=== PATIENT | male | born 1975 ===

== ENCOUNTER 2020-10-05 08:28 | Outpatient (REF) | payer OTHER, SELFPAY ==
[2020-10-05 09:44] LABS: Alanine Aminotransferase 18 U/L (0-40); Albumin Level 4.2 g/dL (3.5-5.0); Alkaline Phosphatase 92 U/L (39-117); Anion Gap 11 (12-20); Aspartate Amino Transferase 18 U/L (5-37); Bilirubin Total 0.4 mg/dL (0.0-1.0); Blood Urea Nitrogen 11 mg/dL (9-16); Calcium 9.4 mg/dL (8.4-10.2); Carbon Dioxide 30 mmol/L (22-29); Chloride 105 mmol/L (96-108); Cholesterol 236 mg/dL; Estimated Glomerular Filt Rate > 60; Glucose Fasting 91 mg/dL (60-99); HDL Cholesterol 48 mg/dL; LDL Cholesterol Calculated 157 mg/dl; Potassium 4.6 mmol/L (3.3-5.1); Sodium 141 mmol/L (135-145); Triglycerides 155 mg/dL
== END 2020-10-05 08:29 | disposition home or self-care (01) ==
LOC: HO.LAB 08:28
PROVIDERS: PCP Internal Medicine; Visit Provider Internal Medicine
DX: E78.00 Pure hypercholesterolemia, unspecified (principal); E78.5 Hyperlipidemia, unspecified
CPT/HCPCS: 36415; 80053; 80061

== ENCOUNTER 2021-02-22 08:21 | Outpatient (REF) | payer OTHER, SELFPAY ==
[2021-02-22 09:26] LABS: Alanine Aminotransferase 40 U/L (0-40); Alkaline Phosphatase 83 U/L (39-117); Anion Gap 10 (12-20); Aspartate Amino Transferase 23 U/L (5-37); Bilirubin Total 0.6 mg/dL (0.0-1.0); Blood Urea Nitrogen 9 mg/dL (9-16); Carbon Dioxide 26 mmol/L (22-29); Chloride 108 mmol/L (96-108); Cholesterol 177 mg/dL; Estimated Glomerular Filt Rate > 60; Glucose Fasting 84 mg/dL (60-99); HDL Cholesterol 52 mg/dL; LDL Cholesterol Calculated 92 mg/dl; Potassium 4.1 mmol/L (3.3-5.1); Sodium 140 mmol/L (135-145); Total Protein 6.7 g/dL (6.5-8.0); Triglycerides 168 mg/dL
== END 2021-02-22 08:22 | disposition home or self-care (01) ==
LOC: HO.LAB 08:21
PROVIDERS: PCP Internal Medicine; Visit Provider Internal Medicine
DX: E78.00 Pure hypercholesterolemia, unspecified (principal); E78.5 Hyperlipidemia, unspecified
CPT/HCPCS: 36415; 80053; 80061

== ENCOUNTER → 2021-04-01 15:43 | Outpatient (BNVA) | payer OTHER, SELFPAY | PROVIDERS: PCP Internal Medicine; Visit Provider Internal Medicine Pulmonary Disease | DX: J45.909 Unspecified asthma, uncomplicated (principal); R91.8 Other nonspecific abnormal finding of lung field; Z91.09 Other allergy status, other than to drugs and biological substances | CPT/HCPCS: 99202 ==

== ENCOUNTER 2021-04-10 15:49 | Outpatient (REF) | payer OTHER, SELFPAY ==
--- NOTE | 2021-04-10 17:35 | PFT_ITS ---
INDICATION: Asthma. SPIROMETRY: The FEV1 to FVC of 65% with an FEV1 of 2.38 L, which is 56% predicted, and an FVC of 3.64 L, which is 69% predicted. Post bronchodilators, there was a significant improvement of the FEV1 by 14%. The patient also has significant small airways disease. Maximum voluntary ventilation 76% predicted. LUNG VOLUMES: Total lung capacity 76% predicted with an expiratory reserve volume of 50% predicted. DIFFUSION CAPACITY: DLCO of 62% predicted. COMPARISONS: None available. INTERPRETATION: There is an obstructive ventilatory defect consistent with moderate to severe COPD. In addition to that, the patient has significant small airways disease suggestive of uncontrolled asthma. There is a significant response to bronchodilators noted. Mild decrease in maximum voluntary ventilation secondary to deconditioning. Lung volumes also demonstrate a mild restrictive ventilatory defect. Therefore, interstitial lung conditions cannot be ruled out. The patient also has moderate diffusion impairment. Clinical correlation warranted. MD JOSE Hernandez/MODL / [id number]
== END 2021-04-10 15:50 | disposition home or self-care (01) ==
LOC: HO.RESP 15:49
PROVIDERS: PCP Internal Medicine; Visit Provider Internal Medicine Pulmonary Disease
DX: J45.909 Unspecified asthma, uncomplicated (principal)
CPT/HCPCS: 94060; 94727; 94729

== ENCOUNTER → 2021-04-22 15:37 | Outpatient (BNVA) | payer OTHER, SELFPAY | PROVIDERS: PCP Internal Medicine; Visit Provider Internal Medicine Pulmonary Disease | DX: Z91.09 Other allergy status, other than to drugs and biological substances (principal); J44.9 Chronic obstructive pulmonary disease, unspecified; J84.10 Pulmonary fibrosis, unspecified | CPT/HCPCS: 99212 ==

== ENCOUNTER 2021-04-26 08:23 | Outpatient (REF) | payer OTHER, SELFPAY ==
[2021-04-26 09:52] LABS: Alanine Aminotransferase 38 U/L (0-40); Albumin Level 4.1 g/dL (3.5-5.0); Alkaline Phosphatase 90 U/L (39-117); Anion Gap 14 (12-20); Aspartate Amino Transferase 25 U/L (5-37); Bilirubin Total 0.5 mg/dL (0.0-1.0); Blood Urea Nitrogen 13 mg/dL (9-16); Calcium 9.3 mg/dL (8.4-10.2); Carbon Dioxide 29 mmol/L (22-29); Chloride 105 mmol/L (96-108); Cholesterol 182 mg/dL; Estimated Glomerular Filt Rate > 60; Glucose Fasting 87 mg/dL (60-99); HDL Cholesterol 49 mg/dL; LDL Cholesterol Calculated 97 mg/dl; Potassium 4.5 mmol/L (3.3-5.1); Sodium 143 mmol/L (135-145); Total Protein 6.9 g/dL (6.5-8.0); Triglycerides 181 mg/dL
== END 2021-04-26 08:24 | disposition home or self-care (01) ==
LOC: HO.LAB 08:23
PROVIDERS: Absent Provider Internal Medicine Pulmonary Disease; PCP Internal Medicine; Visit Provider Internal Medicine
DX: E78.00 Pure hypercholesterolemia, unspecified (principal); E78.5 Hyperlipidemia, unspecified
CPT/HCPCS: 36415; 80053; 80061

== ENCOUNTER 2021-04-28 16:00 | Outpatient (REF) | payer OTHER, SELFPAY ==
[2021-04-28 16:19] LABS: MANUAL DIFF FLAG NO
[2021-04-28 16:39] LABS: Basophils Percent Auto 0.5 % (0-2); Eosinophils Absolute Auto 0.2 X10*3/uL (0.0-0.4); Eosinophils Percent Auto 2.8 % (0-4); Hematocrit 42.9 % (42.0-52.0); Hemoglobin 14.2 g/dl (14.0-18.0); Imm Gran Abs Auto 0.01 X10*3/uL (0.00-0.03); Imm Gran Pct Auto 0.2 % (0.0-0.4); Lymphocytes Percent Auto 32.3 % (20-40); Mean Corpuscular HGB Conc 33.1 g/dl (31.0-36.0); Mean Corpuscular Hemoglobin 28.9 pg (27.0-33.0); Mean Corpuscular Volume 87.4 fL (80.0-98.0); Mean Platelet Volume 10.6 fL (9.4-12.4); Monocytes Absolute Auto 0.5 X10*3/uL (0.1-1.2); Monocytes Percent Auto 8.9 % (2-11); Neutrophils Absolute Auto 3.4 x10*3/uL (2.0-8.3); Neutrophils Percent Auto 55.3 % (45-73); Platelet Count 243 X10*3/uL (160-400); Red Blood Count 4.91 X10*6/uL (4.60-5.80); White Blood Count 6.1 X10*3/uL (4.8-10.8)
== END 2021-04-28 16:01 | disposition home or self-care (01) ==
LOC: HO.LAB 16:00
PROVIDERS: PCP Internal Medicine; Visit Provider Internal Medicine Pulmonary Disease
DX: Z91.09 Other allergy status, other than to drugs and biological substances (principal)
CPT/HCPCS: 36415; 85025

== ENCOUNTER 2022-02-28 08:39 | Outpatient (REF) | payer OTHER, SELFPAY ==
[2022-02-28 10:44] LABS: Alanine Aminotransferase 45 U/L (0-40); Albumin Level 4.5 g/dL (3.5-5.0); Alkaline Phosphatase 95 U/L (39-117); Anion Gap 18 (12-20); Aspartate Amino Transferase 32 U/L (5-37); Bilirubin Total 0.7 mg/dL (0.0-1.0); Blood Urea Nitrogen 12 mg/dL (9-16); Calcium 9.4 mg/dL (8.4-10.2); Carbon Dioxide 24 mmol/L (22-29); Chloride 104 mmol/L (96-108); Cholesterol 191 mg/dL; Estimated Glomerular Filt Rate > 60; Glucose Fasting 88 mg/dL (60-99); HDL Cholesterol 51 mg/dL; LDL Cholesterol Calculated 110 mg/dl; Potassium 4.7 mmol/L (3.3-5.1); Sodium 141 mmol/L (135-145); Total Protein 7.4 g/dL (6.5-8.0); Triglycerides 152 mg/dL
== END 2022-02-28 08:40 | disposition home or self-care (01) ==
LOC: HO.LAB 08:39
PROVIDERS: PCP Internal Medicine; Visit Provider Internal Medicine
DX: E78.00 Pure hypercholesterolemia, unspecified (principal); J84.10 Pulmonary fibrosis, unspecified; E78.5 Hyperlipidemia, unspecified
CPT/HCPCS: 36415; 80053; 80061

== ENCOUNTER 2022-08-22 07:59 | Outpatient (REF) | payer OTHER, SELFPAY ==
--- NOTE | ~2022-08-22 | XR_ITS ---
EXAMINATION: XR KNEE, LEFT CLINICAL INFORMATION: Pain. COMPARISON: None available. TECHNIQUE: AP and lateral views of the left knee. FINDINGS: Bones and soft tissues are normal. No fracture or joint effusion. Alignment is anatomic. Joint spaces are well maintained. No abnormal soft tissue calcification. XR/XR knee LT 2V IMPRESSION: Normal left knee.
[2022-08-22 08:46] LABS: Alanine Aminotransferase 29 U/L (0-40); Albumin Level 4.1 g/dL (3.5-5.0); Alkaline Phosphatase 92 U/L (39-117); Anion Gap 13 (12-20); Aspartate Amino Transferase 21 U/L (5-37); Bilirubin Total 0.7 mg/dL (0.0-1.0); Blood Urea Nitrogen 14 mg/dL (9-16); Calcium 9.1 mg/dL (8.4-10.2); Carbon Dioxide 28 mmol/L (22-29); Chloride 107 mmol/L (96-108); Cholesterol 182 mg/dL; Estimated Glomerular Filt Rate > 60; Glucose Fasting 88 mg/dL (60-99); HDL Cholesterol 46 mg/dL; LDL Cholesterol Calculated 110 mg/dl; Potassium 4.2 mmol/L (3.3-5.1); Sodium 144 mmol/L (135-145); Total Protein 6.8 g/dL (6.5-8.0); Triglycerides 134 mg/dL
== END 2022-08-22 08:00 | disposition home or self-care (01) ==
LOC: HO.LAB 07:59
PROVIDERS: PCP Internal Medicine; Visit Provider Internal Medicine
DX: Z00.00 Encounter for general adult medical examination without abnormal findings (principal); E78.5 Hyperlipidemia, unspecified; M25.562 Pain in left knee
CPT/HCPCS: 36415; 73560; 80053; 80061

== ENCOUNTER 2023-02-02 15:40 | Outpatient (AMB) | payer OTHER, SELFPAY ==
--- NOTE | 2023-02-02 15:43 | MHC.OFFVIS ---
Intake Vital Signs 02/02/23 15:54 Height 5 ft 11 in Weight 176 lb 5.917 oz BMI 24.6 Intake Visit Reasons: asthma Allergies No Known Allergies Allergy (Verified 02/02/23 15:54) HPI asthma HPI Details 47-year-old gentleman, former 20 pack-year smoker, quit 2015, with underlying history of emphysema previously seen at [facility], now followed for asthma/COPD overlap syndrome and ?ILD. Patient was lost to follow up for about 2 years and now returns to restablish follow up. Patient complains of intermittent dyspnea on exertion. He has not been using Stiolto, however his been relying on Combivent. [facility] Medical History Emphysema lung Pure hypercholesterolemia Surgical History No pertinent past surgical history Family History Father No problems noted. Mother No problems noted. Social History Housing: House Alcohol intake: current Alcohol intake frequency: holidays/special occasions only Alcohol type: beer and wine Patient Tobacco Use Status: Former Tobacco user Tobacco use type: Cigarette Years Smoked: 20 years e-Cigarette/Vaping Use: Never Used Second Hand Smoke Exposure: No service: No Current occupational status: employed Current occupational exposures/hazards: No Cognitive needs: No Hearing needs: No Vision needs: No Review of Systems Const Denies daytime sleepiness, Denies excessive sweating, Denies fatigue, Denies fever(s), Denies lethargy, Denies malaise, Denies night sweats, Denies snoring and Denies weight loss Eyes Denies blurry vision and Denies itchy eyes ENT Denies nasal congestion, Denies post nasal drip, Denies sinus pain, Denies sinus pressure and Denies other ( Thrush) Card Denies chest pain, Denies pedal edema, Denies dyspnea, Reports dyspnea on exertion, Denies orthopnea and Denies paroxysmal nocturnal dyspnea Resp Denies cough, Denies hemoptysis, Denies excessive phlegm production, Denies dyspnea, Reports dyspnea on exertion, Denies snoring and Denies wheezing GI Denies abdominal pain and Denies heartburn Musc Denies myalgias, Denies arthralgias and Denies joint swelling Skin/Breast Denies rash Neuro Denies memory loss and Denies seizure-like activity Psych Denies abnormal sleep pattern, Denies anxiety and Denies memory loss Endo Denies excessive sweating, Denies fatigue and Denies heat intolerance Maikol/Lymph Denies easy bruising Aller/Immun Denies itchy eyes, Denies seasonal rhinorrhea and Denies wheezing Physical Exam Const General: no acute distress and alert Nutritional Appearance: not obese Orientation/consciousness: Other orientation findings ( oriented) HEENT Head: Yes atraumatic Eyes General: appearance normal, both eyes and all related structures Sclerae: sclerae normal EOM: EOMs intact bilaterally Neck Neck: Yes supple Lymphatic: no lymphadenopathy noted Resp Effort & Inspection: normal respiratory effort and no use of accessory muscles Auscultation: clear to auscultation bilaterally Cardio Rate: regular rate Rhythm: regular rhythm Heart sounds: no gallops, no murmurs and no rubs Skin General skin exam: other ( warm) Extrem General: No clubbing, No cyanosis and No edema Assessment & Plan Assessment & Plan (1) Pulmonary fibrosis: Code(s): J84.10 - Pulmonary fibrosis, unspecified Plan: Will obtain pulmonary function test and CT chest for further evaluation. (2) Asthma-COPD overlap syndrome: Code(s): J44.9 - Chronic obstructive pulmonary disease, unspecified Plan: Will continue on Combivent until PFT results are available. Orders: Orders CT chest wo IV con Today J84.10 - Pulmonary fibrosis, unspecified PFT pulmonary function test Today J84.10 - Pulmonary fibrosis, unspecified Coding Level of Care Code Est Pt Level 4 (22625) Diagnoses Pulmonary fibrosis J84.10 Asthma-COPD overlap syndrome J44.9
[2023-02-02 15:54] VITALS: BMI 24.6
== END 2023-02-02 15:52 | disposition home or self-care (01) ==
PROVIDERS: PCP Internal Medicine; Visit Provider Internal Medicine Pulmonary Disease
DX: J84.10 Pulmonary fibrosis, unspecified (principal); J44.9 Chronic obstructive pulmonary disease, unspecified
CPT/HCPCS: 99214

== ENCOUNTER → 2023-02-02 15:40 | Outpatient (BNVA) | payer OTHER, SELFPAY | PROVIDERS: PCP Internal Medicine; Visit Provider Internal Medicine Pulmonary Disease | DX: J44.9 Chronic obstructive pulmonary disease, unspecified (principal); J84.10 Pulmonary fibrosis, unspecified | CPT/HCPCS: 99212 ==

== ENCOUNTER 2023-02-22 15:23 | Outpatient (REF) | payer OTHER, SELFPAY ==
--- NOTE | 2023-02-22 16:11 | PFT_ITS ---
Forced vital capacity is 67%, FEV1 49%, FEV1 over FVC ratio is 59. [id number] is 21% and MVV 66%. Post bronchodilator therapy, there is significant improvement in FEV1 and [id number]. CONCLUSION: Severe obstructive airway disorder. There is partial reversibility after bronchodilator therapy. These findings are consistent with asthma/COPD overlap syndrome. Clinical correlation is recommended. MD SEGUN Romero/MODL / [id number]
== END 2023-02-22 15:24 | disposition home or self-care (01) ==
LOC: HO.RESP 15:23
PROVIDERS: PCP Internal Medicine; Visit Provider Internal Medicine Pulmonary Disease
DX: J84.10 Pulmonary fibrosis, unspecified (principal)
CPT/HCPCS: 94010; 94727; 94729

== ENCOUNTER → 2023-02-22 16:11 | Outpatient (BNV) | payer OTHER, SELFPAY | PROVIDERS: PCP Internal Medicine; Visit Provider Internal Medicine | DX: J84.10 Pulmonary fibrosis, unspecified (principal); J44.9 Chronic obstructive pulmonary disease, unspecified | CPT/HCPCS: 94060; 94727; 94729 ==

== ENCOUNTER 2023-03-24 15:58 | Outpatient (REF) | payer OTHER, SELFPAY ==
--- NOTE | ~2023-03-24 | CT_ITS ---
EXAMINATION: CT CHEST WITHOUT CONTRAST CLINICAL INFORMATION: Pulmonary fibrosis COMPARISON: None available. TECHNIQUE: Multidetector volumetric CT imaging of the chest was done. Axial MIP volume rendering provided. Sagittal and coronal reformatted images were obtained. This CT examination was performed using dose optimization techniques as appropriate, variously including the following: *Automated exposure control *Adjustment of mA and/or kV according to patient size (this includes techniques or standardized protocols for targeted exams where dose is matched to indication/reason for exam; i.e. extremities or head) *Use of iterative reconstruction technique DLP: 164 mGy-cm FINDINGS: KENO WRITER/RUNNER: Hyperinflation, right greater than left LUNGS: Mild biapical pleural thickening. Trachea and bronchi are patent with diffuse wall thickening. Lungs are hyper inflated with diffuse advanced emphysematous changes, most pronounced involving the entire right upper lobe, part of the left upper and right lower lobes left. Somewhat elongated, 1.7 x 0.8 x 1.7 cm pleural based right upper lobe opacity spiculated margins is identified, 9:56. 3 mm subpleural VANGIE nodule, 9:85. Scattered granulomas, largest in the left upper lobe measuring 4 mm at 9/71. Biapical pleural thickening. Scattered atelectasis. MEDIASTINUM: Unremarkable thyroid. No pathologic lymphadenopathy. Nonenlarged heart. No pericardial effusion. Degree of coronary calcifications: Mild. Nonaneurysmal aorta with mild atherosclerotic calcifications. Nonenlarged pulmonary arteries. CORONARY ARTERY CALCIFICATION: Mild. PLEURA: There is no pleural effusion. No pleural mass or thickening. 8mm right minor fissural lymph node. AXILLA: No lymphadenopathy. UPPER ABDOMEN: Debris-filled stomach left renal hypodensities, likely cysts. Question left parapelvic cyst versus left intrarenal collecting system prominence. OSSEOUS STRUCTURES: Mild degenerative changes. No suspicious osseous lesions. CT/CT chest wo IV con IMPRESSION: Advanced emphysema. 1.7 cm right upper lobe pleural-based spiculated opacity. Consider CT at 3 months, PET/CT or tissue sampling. Likely left renal cysts. Left parapelvic cyst versus left renal collecting system fullness. Consider ultrasound. Fleischner guidelines were followed.
== END 2023-03-24 15:59 | disposition home or self-care (01) ==
LOC: HO.CT 15:58
PROVIDERS: PCP Internal Medicine; Visit Provider Internal Medicine Pulmonary Disease
DX: J84.10 Pulmonary fibrosis, unspecified (principal)
CPT/HCPCS: 71250

== ENCOUNTER 2023-03-25 15:18 | Outpatient (AMB) | payer OTHER, SELFPAY ==
[2023-03-25 15:20] VITALS: BP 117/77; PULSE 86; O2SAT 99; BMI 24.1
--- NOTE | 2023-03-25 15:20 | MHC.OFFVIS ---
Intake Vital Signs 03/25/23 15:20 Height 5 ft 11 in Weight 173 lb 1.006 oz BMI 24.1 BP 117/77 Blood Pressure Location Rt brachial Position Sitting Pulse 86 Pulse Source Doppler Pulse Oximetry (%) 99 Oxygen Delivery Method Room Air Intake Visit Reasons: asthma Medical Assisting Program Director Required: Yes Medical Assisting Program Director Name: Leonela Bedoya Sabina Allergies No Known Allergies Allergy (Verified 03/25/23 15:24) HPI asthma HPI Details 47-year-old gentleman, former 20 pack-year smoker, quit 2015, with underlying history of emphysema previously seen at [facility], now followed for asthma/COPD overlap syndrome. After the last office visit he has completed his pulmonary function testing that shows underlying moderate COPD with bronchodilator response. He he CT chest has been performed, however official results are not available for this visit. [facility] Medical History (Updated 03/25/23 @ 15:32 by Prabhjot Carrasco MD) Pure hypercholesterolemia Emphysema lung Surgical History No pertinent past surgical history Family History Father No problems noted. Mother No problems noted. Social History (Updated 03/25/23 @ 15:24 by KAYDEN Delacruz) Housing: House Alcohol intake: current Alcohol intake frequency: holidays/special occasions only Alcohol type: beer and wine Patient Tobacco Use Status: Former Tobacco user Tobacco use type: Cigarette Cigarette Packs Per Day: 1 Years Smoked: 20 years e-Cigarette/Vaping Use: Never Used Second Hand Smoke Exposure: No service: No Current occupational status: employed Current occupational exposures/hazards: No Cognitive needs: No Hearing needs: No Vision needs: No Review of Systems Const Denies daytime sleepiness, Denies excessive sweating, Denies fatigue, Denies fever(s), Denies lethargy, Denies malaise, Denies night sweats, Denies snoring and Denies weight loss Eyes Denies blurry vision and Denies itchy eyes ENT Denies nasal congestion, Denies post nasal drip, Denies sinus pain, Denies sinus pressure and Denies other ( Thrush) Card Denies chest pain, Denies pedal edema, Denies dyspnea, Denies orthopnea and Denies paroxysmal nocturnal dyspnea Resp Denies cough, Denies hemoptysis, Denies excessive phlegm production, Denies dyspnea, Denies snoring and Denies wheezing GI Denies abdominal pain and Denies heartburn Musc Denies myalgias, Denies arthralgias and Denies joint swelling Skin/Breast Denies rash Neuro Denies memory loss and Denies seizure-like activity Psych Denies abnormal sleep pattern, Denies anxiety and Denies memory loss Endo Denies excessive sweating, Denies fatigue and Denies heat intolerance Maikol/Lymph Denies easy bruising Aller/Immun Denies itchy eyes, Denies seasonal rhinorrhea and Denies wheezing Physical Exam Vital Signs: Last Vital Signs Pulse 86 03/25/23 15:20 BP 117/77 03/25/23 15:20 Pulse Ox 99 03/25/23 15:20 Oxygen Delivery Method Room Air 03/25/23 15:20 BMI result Body Mass Index 24.1 Const General: no acute distress and alert Nutritional Appearance: not obese Orientation/consciousness: Other orientation findings ( oriented) HEENT Head: Yes atraumatic Eyes General: appearance normal, both eyes and all related structures Sclerae: sclerae normal EOM: EOMs intact bilaterally Neck Neck: Yes supple Lymphatic: no lymphadenopathy noted Resp Effort & Inspection: normal respiratory effort and no use of accessory muscles Auscultation: clear to auscultation bilaterally Cardio Rate: regular rate Rhythm: regular rhythm Heart sounds: no gallops, no murmurs and no rubs Skin General skin exam: other ( warm) Extrem General: No clubbing, No cyanosis and No edema Assessment & Plan Assessment & Plan (1) Asthma-COPD overlap syndrome: Code(s): J44.9 - Chronic obstructive pulmonary disease, unspecified Plan: Suboptimally controlled on Flovent, will switch to Breo. Continue albuterol MDI. (2) Pulmonary nodules: Code(s): R91.8 - Other nonspecific abnormal finding of lung field Plan: Follow-up CT chest results are pending. Medications: New fluticasone furoate-vilanterol 200-25 mcg/dose (Breo Ellipta) 1 inh inhalation DAILY 1 ea 6RF 30 days Discontinued fluticasone propionate 44 mcg/actuation (Flovent HFA) administer with spacer Discontinued Reason: Doctor's Order 1 puff inhalation BID 10.6 grams 1RF 30 days Coding Level of Care Code Est Pt Level 4 (92945) Diagnoses Asthma-COPD overlap syndrome J44.9 Pulmonary nodules R91.8
== END 2023-03-25 15:36 | disposition home or self-care (01) ==
PROVIDERS: PCP Internal Medicine; Visit Provider Internal Medicine Pulmonary Disease
DX: J44.9 Chronic obstructive pulmonary disease, unspecified (principal); R91.8 Other nonspecific abnormal finding of lung field
CPT/HCPCS: 99214

== ENCOUNTER → 2023-03-25 15:18 | Outpatient (BNVA) | payer OTHER, SELFPAY | PROVIDERS: PCP Internal Medicine; Visit Provider Internal Medicine Pulmonary Disease | DX: J44.9 Chronic obstructive pulmonary disease, unspecified (principal); R91.8 Other nonspecific abnormal finding of lung field | CPT/HCPCS: 99212 ==

== ENCOUNTER 2023-09-29 15:29 | Outpatient (AMB) | payer OTHER, SELFPAY ==
[2023-09-29 15:35] VITALS: BP 128/62; PULSE 82; O2SAT 98; BMI 24.8
--- NOTE | 2023-09-29 15:35 | A.OFFVIS_ITS ---
Vital Signs 09/29/23 15:35 Height 5 ft 11 in Weight 178 lb BMI 24.8 BP 128/62 Blood Pressure Location Rt brachial Position Sitting Pulse 82 Pulse Source Doppler Pulse Oximetry (%) 98 Oxygen Delivery Method Room Air Intake Visit Reasons: asthma Coding Validator Required: Yes Coding Validator Name: Leonela Aureliano Muhammad Allergies No Known Allergies Allergy (Verified 09/29/23 15:38) HPI HPI asthma: Details: 48-year-old gentleman, former 20 pack-year smoker, quit 2015, with underlying history of emphysema previously seen at [facility], now followed for asthma/COPD overlap syndrome. After the last office visit he was switched from Flovent to Breo with improved control of his symptoms, however he can no longer tolerate powder inhalers. He denies acute exacerbations. [facility] Medical History (Updated 03/25/23 @ 15:32 by Prabhjot Carrasco MD) Pure hypercholesterolemia Emphysema lung Surgical History No pertinent past surgical history Family History Father No problems noted. Mother No problems noted. Social History Housing: House Alcohol intake: current Alcohol intake frequency: holidays/special occasions only Alcohol type: beer and wine Patient Tobacco Use Status: Former Tobacco user Tobacco use type: Cigarette Cigarette Packs Per Day: 1 Years Smoked: 20 years e-Cigarette/Vaping Use: Never Used Second Hand Smoke Exposure: No service: No Current occupational status: employed Current occupational exposures/hazards: No Cognitive needs: No Hearing needs: No Vision needs: No Review of Systems Const Denies daytime sleepiness, Denies excessive sweating, Denies fatigue, Denies fever(s), Denies lethargy, Denies malaise, Denies night sweats, Denies snoring and Denies weight loss Eyes Denies blurry vision and Denies itchy eyes ENT Denies nasal congestion, Denies post nasal drip, Denies sinus pain, Denies sinus pressure and Denies other ( Thrush) Card Denies chest pain, Denies pedal edema, Denies dyspnea, Denies orthopnea and Denies paroxysmal nocturnal dyspnea Resp Denies cough, Denies hemoptysis, Denies excessive phlegm production, Denies dyspnea, Denies snoring and Denies wheezing GI Denies abdominal pain and Denies heartburn Musc Denies myalgias, Denies arthralgias and Denies joint swelling Skin/Breast Denies rash Neuro Denies memory loss and Denies seizure-like activity Psych Denies abnormal sleep pattern, Denies anxiety and Denies memory loss Endo Denies excessive sweating, Denies fatigue and Denies heat intolerance Maikol/Lymph Denies easy bruising Aller/Immun Denies itchy eyes, Denies seasonal rhinorrhea and Denies wheezing Physical Exam Vital Signs: Last Vital Signs Pulse 82 09/29/23 15:35 BP 128/62 09/29/23 15:35 Pulse Ox 98 09/29/23 15:35 Oxygen Delivery Method Room Air 09/29/23 15:35 BMI result Body Mass Index 24.8 Const General: no acute distress and alert Nutritional Appearance: not obese Orientation/consciousness: Other orientation findings ( oriented) HEENT Head: Yes atraumatic Eyes General: appearance normal, both eyes and all related structures Sclerae: sclerae normal EOM: EOMs intact bilaterally Neck Neck: Yes supple Lymphatic: no lymphadenopathy noted Resp Effort & Inspection: normal respiratory effort and no use of accessory muscles Auscultation: clear to auscultation bilaterally Cardio Rate: regular rate Rhythm: regular rhythm Heart sounds: no gallops, no murmurs and no rubs Skin General skin exam: other ( warm) Extrem General: No clubbing, No cyanosis and No edema Assessment & Plan Assessment & Plan (1) Asthma-COPD overlap syndrome: Code(s): J44.9 - Chronic obstructive pulmonary disease, unspecified Category: Medical Plan: Improved control on Breo, however can not tolerate powder inhaler, will switch to Symbicort. Continue Combivent. (2) Pulmonary nodules: Code(s): R91.8 - Other nonspecific abnormal finding of lung field Category: Medical Plan: Underlying 1.7 cm pulmonary nodule previously negative on PET. Will repeat CT chest for further follow-up. Orders: Orders CT chest wo IV con Today R91.8 - Other nonspecific abnormal finding of lung field Medications: New budesonide-formoterol 160-4.5 mcg/actuation (Symbicort) 2 puffs inhalation BID 30 days 10.2 grams 6RF Discontinued fluticasone furoate-vilanterol 200-25 mcg/dose (Breo Ellipta) Discontinued Reason: Doctor's Order 1 inh inhalation DAILY 30 days 1 ea 6RF Coding Level of Care Code Est Pt Level 4 (07325) Diagnoses Asthma-COPD overlap syndrome J44.9 Pulmonary nodules R91.8
== END 2023-09-29 15:50 | disposition home or self-care (01) ==
PROVIDERS: PCP Internal Medicine; Visit Provider Internal Medicine Pulmonary Disease
DX: J44.9 Chronic obstructive pulmonary disease, unspecified (principal); R91.8 Other nonspecific abnormal finding of lung field
CPT/HCPCS: 99214

== ENCOUNTER → 2023-09-29 15:29 | Outpatient (BNVA) | payer OTHER, SELFPAY | PROVIDERS: PCP Internal Medicine; Visit Provider Internal Medicine Pulmonary Disease | DX: J44.9 Chronic obstructive pulmonary disease, unspecified (principal); R91.8 Other nonspecific abnormal finding of lung field | CPT/HCPCS: 99212 ==

== ENCOUNTER 2023-11-05 14:42 | Outpatient (REF) | payer OTHER, SELFPAY ==
--- NOTE | ~2023-11-05 | CT_ITS ---
EXAMINATION: CT CHEST WITHOUT CONTRAST CLINICAL INFORMATION: Right upper lobe spiculated opacity COMPARISON: 03/24/2023 TECHNIQUE: Multidetector volumetric CT imaging of the chest was done. Axial MIP volume rendering provided. Sagittal and coronal reformatted images were obtained. This CT examination was performed using dose optimization techniques as appropriate, variously including the following: *Automated exposure control *Adjustment of mA and/or kV according to patient size (this includes techniques or standardized protocols for targeted exams where dose is matched to indication/reason for exam; i.e. extremities or head) *Use of iterative reconstruction technique DLP: 163 mGy-cm FINDINGS: VALVE REPAIRER RECLAMATION: Unremarkable LUNGS: There are severe changes of panlobular emphysema in the upper lobes, more prominent on the right upper lobe and there is stable lobulated apical scarring measured 0.5 x 1.2 cm inseparable from the right apical scarring. There is new spiculated lesion measured 1.1 x 0.7 x 0.5 cm in the right upper lobe spiculated with tethering of interpolar fissure, suspicious for malignancy. On the left there is 0.4 cm calcification granuloma in the left upper lobe seen on image 213 series 5 and there is subpleural left upper lobe 0.3 cm nodule seen on image 255, both nodules are stable. MEDIASTINUM: Thyroid gland is unremarkable. There is no mediastinal or hilar lymphadenopathy no cardiomegaly or pericardial effusion. CORONARY ARTERY CALCIFICATION: Mild PLEURA: There is no pleural effusion. No pleural mass or thickening. AXILLA: No lymphadenopathy. UPPER ABDOMEN: Unremarkable. OSSEOUS STRUCTURES: Unremarkable. CT/CT chest wo IV con IMPRESSION: New spiculated lesion in the right upper lobe suspicious for malignancy. PET/CT is recommended. Severe changes of panlobular emphysema, more prominent on the right and stable left lung nodules. Fleischner guidelines were followed.
== END 2023-11-05 14:43 | disposition home or self-care (01) ==
LOC: HO.CT 14:42
PROVIDERS: PCP Internal Medicine; Visit Provider Internal Medicine Pulmonary Disease
DX: R91.8 Other nonspecific abnormal finding of lung field (principal)
CPT/HCPCS: 71250

== ENCOUNTER 2024-01-29 07:39 | Outpatient (REF) | payer OTHER, SELFPAY ==
[2024-01-29 09:31] LABS: Alanine Aminotransferase 31 U/L (0-40); Alkaline Phosphatase 87 U/L (39-117); Anion Gap 11 (12-20); Aspartate Amino Transferase 25 U/L (5-37); Bilirubin Total 0.5 mg/dL (0.0-1.0); Blood Urea Nitrogen 14 mg/dL (9-16); Calcium 9.2 mg/dL (8.4-10.2); Carbon Dioxide 29 mmol/L (22-29); Chloride 106 mmol/L (96-108); Cholesterol 170 mg/dL (<200); Estimated Glomerular Filt Rate > 60; Glucose Fasting 88 mg/dL (60-99); HDL Cholesterol 49 mg/dL (>40); LDL Cholesterol Calculated 102 mg/dL (<100); Potassium 4.3 mmol/L (3.3-5.1); Sodium 142 mmol/L (135-145); Total Protein 6.7 g/dL (6.5-8.0); Triglycerides 97 mg/dL (<150)
== END 2024-01-29 07:40 | disposition home or self-care (01) ==
LOC: HO.LAB 07:39
PROVIDERS: PCP Internal Medicine; Visit Provider Internal Medicine
DX: J84.10 Pulmonary fibrosis, unspecified (principal); E78.5 Hyperlipidemia, unspecified
CPT/HCPCS: 36415; 80053; 80061

== ENCOUNTER 2024-02-03 17:02 | Outpatient (AMB) | payer OTHER, SELFPAY ==
--- NOTE | 2024-02-03 17:17 | MHC.PC.OV ---
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 Accompanied by: Self / Same As Patient Allergies No Known Allergies Allergy (Verified 02/03/24 17:28) Medication List - Last Reconciled 02/03/24 by Kerrie Escobar MD atorvastatin 10 mg PO BEDTIME 90 days budesonide-formoterol 160-4.5 mcg/actuation (Symbicort) 2 puffs inhalation BID 30 days ipratropium-albuterol 20-100 mcg/actuation 1 puff inhalation Q6H 30 days Tobacco use date assessed: 02/03/24 Dental Screening Dental Screen Date: 02/03/24 Did you have a dental visit in the last 12 months?: Yes Did you have a dental problem in the last 6 months where you did not have access to dental care?: No Was dental information given to patient?: Patient has dentist HPI HPI Comments History of Present Illness Details This is a 48-year-old male with asthma-COPD overlap syndrome that comes for his physical exam. Asthma-COPD syndrome is follow by pulmonology and he use rescue inhaler less than once month. Colonoscopy done less than 10 years ago was normal. No acute complaints. [facility] Medical History (Updated 02/04/24 @ 07:46 by Kerrie Escobar MD) Pure hypercholesterolemia Emphysema lung Surgical History (Updated 02/03/24 @ 17:34 by Kerrie Escobar MD) H/O colonoscopy No pertinent past surgical history Family History (Updated 02/03/24 @ 17:35 by Kerrie Escobar MD) Father No problems noted. Mother Breast cancer Social History Housing: House Alcohol intake: current Alcohol intake frequency: holidays/special occasions only Alcohol type: beer and wine Patient Tobacco Use Status: Former Tobacco user Tobacco use type: Cigarette Cigarette Packs Per Day: 1 Years Smoked: 20 years e-Cigarette/Vaping Use: Never Used Second Hand Smoke Exposure: No service: No Current occupational status: employed Current occupational exposures/hazards: No Cognitive needs: No Hearing needs: No Vision needs: No Questionnaire PHQ-9 Over the last 2 weeks, how often have you been bothered by any of the following problems? 1. Little interest or pleasure in doing things: not at all 2. Feeling down, depressed, or hopeless: not at all 3. Trouble falling or staying asleep, or sleeping too much: not at all 4. Feeling tired or having little energy: several days 5. Poor appetite or overeating: not at all 6. Feeling bad about yourself - or that you are a failure or have let yourself or your family down: not at all 7. Trouble concentrating on things, such as reading the newspaper or watching television: not at all 8. Moving or speaking so slowly that other people could have noticed. Or the opposite - being so fidgety or restless that you have been moving around a lot more than usual: not at all 9. Thoughts that you would be better off or of hurting yourself in some way: not at all Total score: 1 Depression Screening Interpretation: Negative Depression Screening Done: Yes 70860 - PHQ-9 Billing: Yes Source: Developed by Drs. Adrián Seth, Yana Cerda, Rosalino Amezcua and colleagues, with an educational gretel from [employer]. Thrive Questionnaire Date Thrive assessed: 02/03/24 I am a: Patient What is your living situation today?: I have a steady place to live Within the past 12 months, did the food you bought not last and you didn't have the money to get more?: Never true Within the past 12 months, did you worry whether your food would run out before you got money to buy more?: Never true Do you have trouble paying for medicines?: No Do you have trouble getting transportation to medical appointments?: No Do you have trouble paying your heating and electricity bill?: No Do you have trouble taking care of your child, family member or friend?: No Do you have trouble with day-to-day activities such as bathing, preparing meals, shopping, managing finances, etc.?: No Are you currently unemployed and looking for a job?: No Are you interested in more education?: No Please select the resources that you would like help with: None Currently or been in a relationship where the following occur: I choose not to answer THRIVE Score: 0 AUDIT C Alcohol Use Questionnaire (AUDIT-C) 1. How often do you have a drink containing alcohol?: Monthly or less 2. How many drinks containing alcohol do you have on a typical day when you are drinking?: 1 or 2 3. How often do you have six or more drinks on one occasion?: Never Total Score: 1 Score Reviewed/Action Taken: No ARY-7 AMB Questionnaire RAY-7 Date ARY - 7 assessed: 02/03/24 Feeling nervous, anxious, or on edge: 0 = Not at all Not being able to stop or control worryin = Not at all Worrying too much about different things: 0 = Not at all Trouble relaxin = Not at all Being so restless that it is hard to sit still: 0 = Not at all Becoming easily annoyed or irritable: 0 = Not at all Feeling afraid as if something awful might happen: 0 = Not at all Total ARY-7 score (0-4 normal; 5-9 mild; 10-14 moderate; 15-21 severe): 0 Source: Developed by Drs. Adrián Seth, Yana Cerda, Rosalino Amezcua and colleagues, with an educational gretel from [employer]. ARY-7 Assessment Billing ARY-7 Assessment Tool: ARY-7 Assessment 65016 Review of Systems Const All systems reviewed & are unremarkable except as noted in HPI and below Card Denies chest pain at rest, Denies chest pain with activity, Denies edema, Denies irregular heart rhythm, Denies claudication, Denies dyspnea, Denies dyspnea on exertion, Denies orthopnea, Denies paroxysmal nocturnal dyspnea and Denies slow heart rate Resp Denies cough, Denies dyspnea and Denies dyspnea on exertion GI Denies abdominal pain, Denies change in bowel habits, Denies excessive flatus, Denies nausea and Denies vomiting Denies urinary hesitancy, Denies urinary incontinence and Denies urinary urgency Musc Denies abnormal gait, Denies atrophy, Denies deformity and Denies limited range of motion Skin/Breast Denies bleeding lesions, Denies changing lesions and Denies rash Neuro Denies abnormal gait and Denies lack of coordination Physical exam (Primary Care) Vital Signs: Last Vital Signs BP 130/80 02/03/24 17:18 BMI result Body Mass Index 25.0 Tobacco/Smoking Status: Tobacco use Status Tobacco use date assessed 02/03/24 02/03/24 17:25 Patient Tobacco Use Status Former Tobacco user 02/03/24 17:25 Tobacco use type Cigarette 02/03/24 17:25 e-Cigarette/Vaping Use Never Used 02/03/24 17:25 PHQ-9: PHQ-9 Score PHQ-9: Total score 1 02/03/24 17:29 Depression Screening Interpretation: Negative Thrive Assessment: Date of Thrive Assessment Date Thrive assessed 02/03/24 02/03/24 17:25 Currently or been in a relationship where the following occur: I choose not to answer HENMT Head: Yes normal to inspection, Yes normocephalic and Yes atraumatic Ears: external ears normal Eyes General: appearance normal, both eyes and all related structures Eyelids: Yes eyelids normal Conjunctivae: conjunctivae normal Neck Neck: Yes normal visual inspection and Yes supple Resp Effort & Inspection: normal respiratory effort Auscultation: clear to auscultation bilaterally Cardio Jugular venous distension: no JVD Rate: regular rate Rhythm: regular rhythm Heart sounds: S1 normal heart sound present and S2 normal heart sound present GI Inspection: Yes normal to inspection Palpation (GI): Soft to palpation and nontender Auscultation: normal bowel sounds Skin General skin exam: no rashes or lesions noted Neuro General: no focal motor deficits Extrem General: Yes full ROM Psych Appearance: grossly normal Assessment and Plan Assessment & Plan (1) Physical exam: Code(s): Z00.00 - Encounter for general adult medical examination without abnormal findings Plan: Repeat in a year. (2) Asthma-COPD overlap syndrome: Code(s): J44.9 - Chronic obstructive pulmonary disease, unspecified Plan: Continue long-acting inhaler. Use rescue inhaler as needed. Coding Level of Care Code Est Pt Prev Care 40-64y(30861) Diagnoses Physical exam Z00.00 Asthma-COPD overlap syndrome J44.9 Additional Codes ARY-7 Assessment Billing - ARY-7 Assessment Tool: ARY-7 Assessment 40316 ([id number]) Time Spent (min) 30
[2024-02-03 17:18] VITALS: BP 130/80; BMI 25.0
== END 2024-02-03 17:36 | disposition home or self-care (01) ==
PROVIDERS: PCP Internal Medicine; Visit Provider Internal Medicine
DX: Z00.00 Encounter for general adult medical examination without abnormal findings (principal); J44.9 Chronic obstructive pulmonary disease, unspecified
CPT/HCPCS: 99396

== ENCOUNTER 2024-04-19 14:49 | Outpatient (AMB) | payer OTHER, SELFPAY ==
[2024-04-19 14:55] VITALS: BP 118/80; PULSE 86; O2SAT 98; BMI 25.4
--- NOTE | 2024-04-19 14:55 | MHC.OFFVIS ---
Vital Signs 04/19/24 14:55 Height 5 ft 11 in Weight 181 lb 14.102 oz BMI 25.4 BP 118/80 Blood Pressure Location Lt brachial Position Sitting Pulse 86 Pulse Source Doppler Pulse Oximetry (%) 98 Oxygen Delivery Method Room Air Intake Visit Reasons: Asthma Varitypist Required: Yes Varitypist Name: Leonela Bedoya Sabina Allergies No Known Allergies Allergy (Verified 02/03/24 17:28) HPI HPI Asthma: Details: 48-year-old gentleman, former 20 pack-year smoker, quit 2016, with underlying history of emphysema previously seen at [facility], now followed for asthma/COPD overlap syndrome. After the last office visit he was switched from Breo to Symbicort with improved symptom control. He did have repeat CT chest that shows new spiculated right upper lobe nodule. [facility] Medical History (Updated 02/04/24 @ 07:46 by Kerrie Escobar MD) Pure hypercholesterolemia Emphysema lung Surgical History (Updated 02/03/24 @ 17:34 by Kerrie Escobar MD) H/O colonoscopy No pertinent past surgical history Family History (Updated 02/03/24 @ 17:35 by Kerrie Escobar MD) Father No problems noted. Mother Breast cancer Social History Housing: House Alcohol intake: current Alcohol intake frequency: holidays/special occasions only Alcohol type: beer and wine Patient Tobacco Use Status: Former Tobacco user Tobacco use type: Cigarette Cigarette Packs Per Day: 1 Years Smoked: 20 years e-Cigarette/Vaping Use: Never Used Second Hand Smoke Exposure: No service: No Current occupational status: employed Current occupational exposures/hazards: No Cognitive needs: No Hearing needs: No Vision needs: No Review of Systems Const Denies daytime sleepiness, Denies excessive sweating, Denies fatigue, Denies fever(s), Denies lethargy, Denies malaise, Denies night sweats, Denies snoring and Denies weight loss Eyes Denies blurry vision and Denies itchy eyes ENT Denies nasal congestion, Denies post nasal drip, Denies sinus pain, Denies sinus pressure and Denies other ( Thrush) Card Denies chest pain, Denies pedal edema, Denies dyspnea, Denies orthopnea and Denies paroxysmal nocturnal dyspnea Resp Denies cough, Denies hemoptysis, Denies excessive phlegm production, Denies dyspnea, Denies snoring and Denies wheezing GI Denies abdominal pain and Denies heartburn Musc Denies myalgias, Denies arthralgias and Denies joint swelling Skin/Breast Denies rash Neuro Denies memory loss and Denies seizure-like activity Psych Denies abnormal sleep pattern, Denies anxiety and Denies memory loss Endo Denies excessive sweating, Denies fatigue and Denies heat intolerance Maikol/Lymph Denies easy bruising Aller/Immun Denies itchy eyes, Denies seasonal rhinorrhea and Denies wheezing Physical Exam Vital Signs: Last Vital Signs Pulse 86 04/19/24 14:55 BP 118/80 04/19/24 14:55 Pulse Ox 98 04/19/24 14:55 Oxygen Delivery Method Room Air 04/19/24 14:55 BMI result Body Mass Index 25.4 Const General: no acute distress and alert Nutritional Appearance: not obese Orientation/consciousness: Other orientation findings ( oriented) HEENT Head: Yes atraumatic Eyes General: appearance normal, both eyes and all related structures Sclerae: sclerae normal EOM: EOMs intact bilaterally Neck Neck: Yes supple Lymphatic: no lymphadenopathy noted Resp Effort & Inspection: normal respiratory effort and no use of accessory muscles Auscultation: clear to auscultation bilaterally Cardio Rate: regular rate Rhythm: regular rhythm Heart sounds: no gallops, no murmurs and no rubs Skin General skin exam: other ( warm) Extrem General: No clubbing, No cyanosis and No edema Office Procedures Flu Questionnaire Does the patient have a severe egg allergy?: No Does the patient have severe life threatening allergies?: No Does the patient have a fever or illness today?: No Has the patient ever had Guillain-Pho[place] Syndrome?: No Has the patient ever had any past reaction to a flu shot?: No Immunizations Fluarix Triv [id number] (PF) 45 mcg (15 mcg x 3)/0.5 mL IM syringe Performing Provider: Prabhjot Carrasco MD Performing Location: [facility] [place] [facility] Administered by: Indy Arshad LPN on 04/19/24 15:21 Dose Route Admin Location Dispensed Lot Number Expiration Date [facility] Regulatory Compliance Manager 0.5 mL IM Right Deltoid 0.5 mL [id number] 11/27/24 87236-882-30 [employer] VIS Given Date VIS Provided VIS Publication Date 04/19/24 Single Vaccine 21 Eligibility Eligibility Date Funding Source Not [facility] Eligible 04/19/24 Private Assessment & Plan Assessment & Plan (1) Asthma-COPD overlap syndrome: Code(s): J44.9 - Chronic obstructive pulmonary disease, unspecified Category: Medical Plan: Well controlled on Symbicort, duo nebs, and albuterol MDI. Continue current regimen. (2) Pulmonary nodules: Code(s): R91.8 - Other nonspecific abnormal finding of lung field Category: Medical Plan: New greater than 1 cm spiculated right upper lobe nodule, will obtain PET scan. Orders: Orders Influenza [id number] Immunization Today J44.9 - Chronic obstructive pulmonary disease, unspecified PET CT fusion skull to thigh Today R91.8 - Other nonspecific abnormal finding of lung field Coding Level of Care Code Est Pt Level 4 (24175) Diagnoses Asthma-COPD overlap syndrome J44.9 Pulmonary nodules R91.8
== END 2024-04-19 15:22 | disposition home or self-care (01) ==
PROVIDERS: PCP Internal Medicine; Visit Provider Internal Medicine Pulmonary Disease
DX: J44.9 Chronic obstructive pulmonary disease, unspecified (principal); R91.8 Other nonspecific abnormal finding of lung field
CPT/HCPCS: 99214

== ENCOUNTER → 2024-04-19 14:49 | Outpatient (BNVA) | payer OTHER, SELFPAY | PROVIDERS: PCP Internal Medicine; Visit Provider Internal Medicine Pulmonary Disease | DX: J43.9 Emphysema, unspecified (principal); J44.9 Chronic obstructive pulmonary disease, unspecified; R91.8 Other nonspecific abnormal finding of lung field; Z23 Encounter for immunization | CPT/HCPCS: 90471; 90656; 99212 ==

== ENCOUNTER 2024-06-14 15:09 | Outpatient (AMB) | payer OTHER, SELFPAY ==
--- NOTE | 2024-06-14 15:09 | MHC.OFFVIS ---
Vital Signs 06/14/24 15:10 Height 5 ft 11 in Weight 185 lb BMI 25.8 BP 130/80 Blood Pressure Location Lt brachial Position Sitting Pulse 93 Pulse Source Doppler Pulse Oximetry (%) 99 Oxygen Delivery Method Room Air Intake Visit Reasons: asthma Structural Steel Equipment Erector Required: Yes Structural Steel Equipment Erector Name: Leonela Bedoya Sabina Allergies No Known Allergies Allergy (Verified 02/03/24 17:28) HPI HPI asthma: Details: 48-year-old gentleman, former 20 pack-year smoker, quit 2015, with underlying history of emphysema previously seen at [facility], now followed for asthma/COPD overlap syndrome. He continues on Symbicort, duo nebs, and albuterol MDI with good control of his symptoms. He had his PET scan that demonstrate resolution of previously noted right upper lobe spiculated nodule. [facility] Medical History (Updated 02/04/24 @ 07:46 by Kerrie Escobar MD) Pure hypercholesterolemia Emphysema lung Surgical History (Updated 02/03/24 @ 17:34 by Kerrie Escobar MD) H/O colonoscopy No pertinent past surgical history Family History (Updated 02/03/24 @ 17:35 by Kerrie Escobar MD) Father No problems noted. Mother Breast cancer Social History Housing: House Alcohol intake: current Alcohol intake frequency: holidays/special occasions only Alcohol type: beer and wine Patient Tobacco Use Status: Former Tobacco user Tobacco use type: Cigarette Cigarette Packs Per Day: 1 Years Smoked: 20 years e-Cigarette/Vaping Use: Never Used Second Hand Smoke Exposure: No service: No Current occupational status: employed Current occupational exposures/hazards: No Cognitive needs: No Hearing needs: No Vision needs: No Review of Systems Const Denies daytime sleepiness, Denies excessive sweating, Denies fatigue, Denies fever(s), Denies lethargy, Denies malaise, Denies night sweats, Denies snoring and Denies weight loss Eyes Denies blurry vision and Denies itchy eyes ENT Denies nasal congestion, Denies post nasal drip, Denies sinus pain, Denies sinus pressure and Denies other ( Thrush) Card Denies chest pain, Denies pedal edema, Denies dyspnea, Denies orthopnea and Denies paroxysmal nocturnal dyspnea Resp Denies cough, Denies hemoptysis, Denies excessive phlegm production, Denies dyspnea, Denies snoring and Denies wheezing GI Denies abdominal pain and Denies heartburn Musc Denies myalgias, Denies arthralgias and Denies joint swelling Skin/Breast Denies rash Neuro Denies memory loss and Denies seizure-like activity Psych Denies abnormal sleep pattern, Denies anxiety and Denies memory loss Endo Denies excessive sweating, Denies fatigue and Denies heat intolerance Maikol/Lymph Denies easy bruising Aller/Immun Denies itchy eyes, Denies seasonal rhinorrhea and Denies wheezing Physical Exam Vital Signs: Last Vital Signs Pulse 93 06/14/24 15:10 BP 130/80 06/14/24 15:10 Pulse Ox 99 06/14/24 15:10 Oxygen Delivery Method Room Air 06/14/24 15:10 BMI result Body Mass Index 25.8 Const General: no acute distress and alert Nutritional Appearance: not obese Orientation/consciousness: Other orientation findings ( oriented) HEENT Head: Yes atraumatic Eyes General: appearance normal, both eyes and all related structures Sclerae: sclerae normal EOM: EOMs intact bilaterally Neck Neck: Yes supple Lymphatic: no lymphadenopathy noted Resp Effort & Inspection: normal respiratory effort and no use of accessory muscles Auscultation: clear to auscultation bilaterally Cardio Rate: regular rate Rhythm: regular rhythm Heart sounds: no gallops, no murmurs and no rubs Skin General skin exam: other ( warm) Extrem General: No clubbing, No cyanosis and No edema Assessment & Plan Assessment & Plan (1) Asthma-COPD overlap syndrome: Code(s): J44.9 - Chronic obstructive pulmonary disease, unspecified Category: Medical Plan: Well controlled on current regimen of Symbicort, duo nebs, and albuterol MDI. Continue current regimen. (2) Pulmonary nodules: Code(s): R91.8 - Other nonspecific abnormal finding of lung field Category: Medical Plan: Results of PET scan reviewed, resolution of previously noted spiculated right upper lobe nodule. Will repeat CT chest in 6 months. Orders: Orders CT chest wo IV con 12/12/24 R91.8 - Other nonspecific abnormal finding of lung field Coding Level of Care Code Est Pt Level 4 (59600) Diagnoses Asthma-COPD overlap syndrome J44.9 Pulmonary nodules R91.8
[2024-06-14 15:10] VITALS: BP 130/80; PULSE 93; O2SAT 99; BMI 25.8
== END 2024-06-14 15:18 | disposition home or self-care (01) ==
PROVIDERS: PCP Internal Medicine; Visit Provider Internal Medicine Pulmonary Disease
DX: J44.9 Chronic obstructive pulmonary disease, unspecified (principal); R91.8 Other nonspecific abnormal finding of lung field
CPT/HCPCS: 99214

== ENCOUNTER → 2024-06-14 15:09 | Outpatient (BNVA) | payer OTHER, SELFPAY | PROVIDERS: PCP Internal Medicine; Visit Provider Internal Medicine Pulmonary Disease | DX: J44.9 Chronic obstructive pulmonary disease, unspecified (principal); R91.8 Other nonspecific abnormal finding of lung field; Z87.891 Personal history of nicotine dependence | CPT/HCPCS: 99212 ==

== ENCOUNTER 2024-11-17 15:07 | Outpatient (REF) | payer OTHER, SELFPAY ==
--- NOTE | ~2024-11-17 | CT_ITS ---
EXAMINATION: CT CHEST WITHOUT CONTRAST CLINICAL INFORMATION: R91.8 - Other nonspecific abnormal finding of lung field COMPARISON: November 05, 2023 and March 24, 2023 TECHNIQUE: Multidetector volumetric CT imaging of the chest was done. Axial MIP volume rendering provided. Sagittal and coronal reformatted images were obtained. This CT examination was performed using dose optimization techniques as appropriate, variously including the following: *Automated exposure control *Adjustment of mA and/or kV according to patient size (this includes techniques or standardized protocols for targeted exams where dose is matched to indication/reason for exam; i.e. extremities or head) *Use of iterative reconstruction technique FINDINGS: LUNGS: Image 59/179:3 x 4 mm calcified pulmonary nodule in the lateral left upper lobe is unchanged. Axial image 84/179: Again seen is a 5 x 10 mm right upper lobe spiculated nodule with tenting of the minor fissure, unchanged. Axial Image 69/179: 3 mm subpleural pulmonary nodule in the lateral left upper lobe contacting pleura is unchanged. No new nodules are evident. Extensive paraseptal and centrilobular emphysema is present in the right upper lobe and moderate changes are seen in the left apex, more so peripherally. Mild to moderate multifocal changes are present in the right lower lobe MEDIASTINUM: The mediastinum is normal. CORONARY ARTERY CALCIFICATION: Present PLEURA: Focal pleural thickening in the lateral portion of the right apex is stable. AXILLA: No lymphadenopathy. UPPER ABDOMEN: Benign renal cysts are present in the kidneys. 2 - 3 mm nonobstructing stone is present in the mid left kidney. OSSEOUS STRUCTURES: Multifocal degenerative disc disease in the visible spine is present. CT/CT chest wo IV con IMPRESSION: Stable spiculated nodule in the right upper lobe with tenting of the minor fissure. No new nodules. Stable changes related to emphysema. 2 - 3 mm nonobstructing stone is present in the mid left kidney. Fleischner guidelines were followed. Electronically signed by: [place] MD 11/17/2024 05:17 PM EDT
--- OUTSIDE RECORDS SUMMARY | 2024-11-17 15:09 | XMS_ITS | Clinical Summary ---
Author Organization [facility] Address [address] [place] [address] Phone Care Team Providers Care Manager Beverage Name Role Phone Divine Yeung MD Primary Care Provider Surgical History Surgery Date Site/Laterality Comments OTHER SURGICAL HISTORY PROCEDURE: DENIES PREVIOUS SURGERY ESOPHAGOGASTRODUODENOSCOPY 04/29/16 PROCEDURE: CO ESOPHAGOGASTRODUODENOSCOPY TRANSORAL DIAGNOSTIC; COMMENT: normal COLONOSCOPY 04/29/16 PROCEDURE: HISTORICAL COLONOSCOPY; COMMENT: hemorrhoids; repeat in 10 yrs Medical History Medical History Date Comments COPD (chronic obstructive pu lmonary disease) ([facility] V24, [facility] V28) 12/11/2015 DX:COPD (chronic o bstructive pulmonary disease) ([facility]) Hyperlipidemia 12/11/2015 DX:Hyperlipidemi a GERD (gastroesophageal reflux disease) 12/11/2015 DX:GERD (gastroesophageal reflux disease) Internal hemorrhoids 09/10/2016 DX:Internal hemorrhoids Hiatal hernia with GERD 10/02/2016 DX:Hiata l hernia with GERD IFG (impaired fasting glucose) 02/03/2017 D X:IFG (impaired fasting glucose) Family History Medical History Relation Name Comments Colon cancer Neg Hx Relation Name Status Comments Brother 1 Alive Brother 2 Alive Father Alive Mother Alive Sister 1 Alive Sister 2 Alive Sister 3 Alive Son Alive Social History Tobacco Use Types Packs/Day Years Used Date Smoking Tobacco: Never Smokeless Tobacco: Never Alcohol Use Standard Drinks/Week Comments No 0 (1 standard drink = 0.6 oz pur e alcohol) Sex and Gender Information Value Date Recorded Sex Assigned at Not on file Legal Sex Male 5:38 AM EST Gender Identity Not on file Sexual Orientation Not on file Obstetrics History Plan of Treatment Health Maintenance Due Date Last Done Comments DTaP,Tdap,and Td Vaccines (1 - Tdap) 1993 Hepatitis B Vaccines (1 of 3 - 19+ 3-dose series) 1993 Pneumococcal Vaccine: 50+ Years (2 of 2 - PPSV23) 06/04/2016 04/09/2016 Pneumococcal Vaccine: Pediatrics (0 to 5 Years) and At-Risk Patients (6 to 64 Years) (2 of 2 - PPSV23) 06/04/2016 04/09/2016 COVID-19 Vaccine (3 - 2023- season) 2024 06/07/2021, 09/08/2020 Cholesterol Screening (Lipid Panel) 03/22/2024 Colorectal Cancer Screening: Colonoscopy 03/22/2024 Depression Screening 03/22/2024 HIV Screening 03/22/2024 Hepatitis C Screening 03/22/2024 Social Influencers of Health Screening 03/22/2024 Zoster Vaccines (1 of 2) 2024 Influenza Vaccine Completed 04/19/2024, , 03/01/2021, Additional history exists HIB Vaccines Aged Out No longer eligi ble based on patient's age to complete this topic HPV Vaccines Aged Out No longer eligi ble based on patient's age to complete this topic Hepatitis A Vaccines Aged Out No long er eligible based on patient's age to complete this topic IPV Vaccines Aged Out No longer eligi ble based on patient's age to complete this topic MMR Vaccines Aged Out No longer eligi ble based on patient's age to complete this topic Meningococcal ACWY Vaccine Aged Out N o longer eligible based on patient's age to complete this topic Meningococcal B Vaccine Aged Out No l onger eligible based on patient's age to complete this topic RSV Immunization Patients Under 20 months Aged Out No longer eligible based on patient's age to complete this topic Varicella Vaccines Aged Out No longer eligible based on patient's age to complete this topic Care Teams Manager Beverage Relationship Specialty Start Date End Date Divine Yeung MD [address] [place] [address] PCP - General Internal Medicine 04/09/16
== END 2024-11-17 15:08 | disposition home or self-care (01) ==
LOC: HO.CT 15:07
PROVIDERS: PCP Internal Medicine; Visit Provider Internal Medicine Pulmonary Disease
DX: R91.8 Other nonspecific abnormal finding of lung field (principal)
CPT/HCPCS: 71250

== ENCOUNTER → 2024-11-17 15:12 | Outpatient (BNV) | payer OTHER, SELFPAY | PROVIDERS: PCP Internal Medicine; Visit Provider Radiology Diagnostic Radiology | DX: J43.9 Emphysema, unspecified (principal); R91.1 Solitary pulmonary nodule; N20.0 Calculus of kidney | CPT/HCPCS: 71250 ==

== ENCOUNTER 2025-02-28 08:07 | Outpatient (AMB) | payer OTHER, SELFPAY ==
[2025-02-28 08:13] VITALS: BP 132/68; PULSE 67; TEMP 36.3; O2SAT 97; BMI 24.2
--- NOTE | 2025-02-28 08:13 | A.OFFPC_ITS ---
Vital Signs 02/28/25 08:13 Height 5 ft 11 in Weight 173 lb 6 oz BMI 24.2 BP 132/68 Blood Pressure Location Lt brachial Position Sitting Pulse 67 Pulse Source Pulse Oximeter Temp 97.3 F Temp Source Temporal Artery Scan Pulse Oximetry (%) 97 Oxygen Delivery Method Room Air Intake Visit Reasons: Pain in shoulder Intake Note: Patient is here to follow up on Pain in shoulder. Knuckle Strap Sewer Required: Yes Knuckle Strap Sewer Language: Greek Information Interpreted: non-clinical & clinical Marine Electrician Helper: Not Required per policy Accompanied by: Self / Same As Patient Allergies No Known Allergies Allergy (Verified 02/28/25 08:29) Medication List - Last Reconciled 02/28/25 by Kerrie Escobar MD atorvastatin 10 mg PO BEDTIME 90 days budesonide-formoterol 160-4.5 mcg/actuation (Symbicort) 2 puffs inhalation BID 30 days ipratropium-albuterol 20-100 mcg/actuation 1 puff inhalation Q6H 30 days Tobacco use date assessed: 02/28/25 Dental Screening Dental Screen Date: 02/28/25 Did you have a dental visit in the last 12 months?: Yes Did you have a dental problem in the last 6 months where you did not have access to dental care?: No Was dental information given to patient?: Patient has dentist HPI HPI Comments History of Present Illness0 Details The patient is a 49-year-old male presenting with joint pain that started few months ago. On statins for his pure hypercholesterolemia which has been well controlled. The patient has a history of asthma-COPD overlap syndrome, managed with Symbicort and ipratropium inhalers, used twice daily. A CT scan revealed a pulmonary nodule, and the patient is under the care of a bass guitar teacher. Recently, a kidney stone was identified, and the patient has been advised to increase water intake with lemon to facilitate passage. The patient has no prior history of nephrolithiasis. The patient reports experiencing joint pain in multiple areas, including shoulders, feet, arms, and knees, accompanied by a general feeling of fatigue. The pain is described as a persistent tiredness and aching in the bones, particularly in the upper body. The patient is missing pneumonia and tetanus vaccinations, which are planned to be administered during this visit. [facility] Medical History (Updated 02/28/25 @ 08:44 by Kerrie Escobar MD) Pure hypercholesterolemia Emphysema lung Surgical History H/O colonoscopy No pertinent past surgical history Family History Father No problems noted. Mother Breast cancer Social History Housing: House Alcohol intake: current Alcohol intake frequency: holidays/special occasions only Alcohol type: beer and wine Patient Tobacco Use Status: Former Tobacco user Tobacco use type: Cigarette Cigarette Packs Per Day: 1 Years Smoked: 20 years e-Cigarette/Vaping Use: Never Used Second Hand Smoke Exposure: Yes service: No Current occupational status: employed Current occupational exposures/hazards: No Cognitive needs: No Hearing needs: No Vision needs: No Questionnaire PHQ-9 Over the last 2 weeks, how often have you been bothered by any of the following problems? 1. Little interest or pleasure in doing things: not at all 2. Feeling down, depressed, or hopeless: not at all 3. Trouble falling or staying asleep, or sleeping too much: not at all 4. Feeling tired or having little energy: several days 5. Poor appetite or overeating: not at all 6. Feeling bad about yourself - or that you are a failure or have let yourself or your family down: not at all 7. Trouble concentrating on things, such as reading the newspaper or watching television: not at all 8. Moving or speaking so slowly that other people could have noticed. Or the opposite - being so fidgety or restless that you have been moving around a lot more than usual: not at all 9. Thoughts that you would be better off or of hurting yourself in some way: not at all Total score: 1 Depression Screening Interpretation: Negative Depression Screening Done: Yes 08596 - PHQ-9 Billing: Yes Source: Developed by Drs. Adrián Seth, Yana Cerda, Rosalino Amezcua and colleagues, with an educational gretel from [employer]. Thrive Questionnaire Date Thrive assessed: 02/26/25 I am a: Patient What is your living situation today?: I have a steady place to live Within the past 12 months, did the food you bought not last and you didn't have the money to get more?: Never true Within the past 12 months, did you worry whether your food would run out before you got money to buy more?: Never true Do you have trouble paying for medicines?: No Do you have trouble getting transportation to medical appointments?: No Do you have trouble paying your heating and electricity bill?: No Do you have trouble taking care of your child, family member or friend?: No Do you have trouble with day-to-day activities such as bathing, preparing meals, shopping, managing finances, etc.?: No Are you currently unemployed and looking for a job?: No Are you interested in more education?: No Please select the resources that you would like help with: None Currently or been in a relationship where the following occur: I choose not to answer THRIVE Score: 0 AUDIT C Alcohol Use Questionnaire (AUDIT-C) 1. How often do you have a drink containing alcohol?: Never 3. How often do you have six or more drinks on one occasion?: Never Total Score: 0 Score Reviewed/Action Taken: No ARY-7 AMB Questionnaire ARY-7 Date ARY - 7 assessed: 02/28/25 Feeling nervous, anxious, or on edge: 0 = Not at all Not being able to stop or control worryin = Not at all Worrying too much about different things: 0 = Not at all Trouble relaxin = Several days Being so restless that it is hard to sit still: 0 = Not at all Becoming easily annoyed or irritable: 0 = Not at all Feeling afraid as if something awful might happen: 0 = Not at all Total ARY-7 score (0-4 normal; 5-9 mild; 10-14 moderate; 15-21 severe): 1 Source: Developed by Drs. Adrián Seth, Yana Cerda, Rosalino Amezcua and colleagues, with an educational gretel from [employer]. ARY-7 Assessment Billing ARY-7 Assessment Tool: ARY-7 Assessment 41891 Review of Systems Const All systems reviewed & are unremarkable except as noted in HPI and below Card Denies chest pain at rest, Denies chest pain with activity, Denies edema, Denies irregular heart rhythm, Denies claudication, Denies dyspnea, Denies dyspnea on exertion, Denies orthopnea, Denies paroxysmal nocturnal dyspnea and Denies slow heart rate Resp Denies cough, Denies dyspnea and Denies dyspnea on exertion GI Denies abdominal pain, Denies change in bowel habits, Denies excessive flatus, Denies nausea and Denies vomiting Denies urinary hesitancy, Denies urinary incontinence and Denies urinary urgency Physical exam (Primary Care) Vital Signs: Last Vital Signs Temp 97.3 F 02/28/25 08:13 Pulse 67 02/28/25 08:13 BP 132/68 02/28/25 08:13 Pulse Ox 97 02/28/25 08:13 Oxygen Delivery Method Room Air 02/28/25 08:13 BMI result Body Mass Index 24.2 Tobacco/Smoking Status: Tobacco use Status Tobacco use date assessed 02/28/25 02/28/25 08:21 Patient Tobacco Use Status Former Tobacco user 02/28/25 08:13 Tobacco use type Cigarette 02/28/25 08:13 e-Cigarette/Vaping Use Never Used 02/28/25 08:13 PHQ-9: PHQ-9 Score PHQ-9: Total score 1 02/28/25 08:35 Depression Screening Interpretation: Negative Thrive Assessment: Date of Thrive Assessment Date Thrive assessed 02/26/25 02/28/25 08:13 Currently or been in a relationship where the following occur: I choose not to answer Resp Effort & Inspection: normal respiratory effort Auscultation: clear to auscultation bilaterally Cardio Jugular venous distension: no JVD Rate: regular rate Rhythm: regular rhythm Heart sounds: S1 normal heart sound present and S2 normal heart sound present Extrem General: Yes full ROM Immunizations pneumoc 20-ivette conj-dip cr(PF) 0.5 mL IM syringe Performing Provider: Kerrie Escobar MD [place] [facility] [place] [facility] Administered by: Shannon Lozano CMA on 02/28/25 08:44 Dose Route Admin Location Dispensed Lot Number Expiration Date [facility] Extractor Loader And Unloader 0.5 mL IM Right Deltoid 0.5 mL [id number] 01/29/26 4312-4407-59 [employer] Total Dispensed Waste 0.5 mL 0 % VIS Given Date VIS Provided VIS Publication Date 02/28/25 Single Vaccine 24 Eligibility Eligibility Date Funding Source Not [facility] Eligible 02/28/25 Private Boostrix Tdap 2.5 Lf unit-8 mcg-5 Lf/0.5 mL intramuscular syringe Performing Provider: Kerrie Escobar MD [place] [facility] [facility] Administered by: Shannon Lozano CMA on 02/28/25 08:44 Dose Route Admin Location Dispensed Lot Number Expiration Date [employer] Extractor Loader And Unloader 0.5 mL IM Left Deltoid 0.5 mL [id number] 04/19/27 30952-386-96 [employer] Total Dispensed Waste 0.5 mL 0 % VIS Given Date VIS Provided VIS Publication Date 02/28/25 Single Vaccine 21 Eligibility Eligibility Date Funding Source Not VF Eligible 02/28/25 Private Coding Level of Care Code Est Pt Level 4 (75176) Complex EM visit Add On G2211 Diagnoses Asthma-COPD overlap syndrome J44.9 Pulmonary nodules R91.8 Nephrolithiasis N20.0 Polyarthralgia M25.50 Pure hypercholesterolemia E78.00 Additional Codes PHQ-9 - 44808 - PHQ-9 Billing: Yes ([id number]) ARY-7 Assessment Billing - ARY-7 Assessment Tool: ARY-7 Assessment 15362 ([id number]) Time Spent (min) 23 Assessment & Plan Assessment & Plan (1) Asthma-COPD overlap syndrome: Code(s): J44.9 - Chronic obstructive pulmonary disease, unspecified Category: Medical (2) Pulmonary nodules: Code(s): R91.8 - Other nonspecific abnormal finding of lung field Category: Medical (3) Nephrolithiasis: Code(s): N20.0 - Calculus of kidney Category: Medical (4) Polyarthralgia: Code(s): M25.50 - Pain in unspecified joint Category: Medical (5) Pure hypercholesterolemia: Code(s): E78.00 - Pure hypercholesterolemia, unspecified Category: Medical Plan Plan Patient was informed and verbally consented to the use of an ambient scribe for clinic note documentation during this visit. 1. Other specified chronic obstructive pulmonary disease J44.89 HCC 111 The patient is advised to continue using Symbicort and ipratropium inhalers twice daily for management of asthma-COPD overlap syndrome. 2. Solitary pulmonary nodule R91.1 The patient is under the care of a bass guitar teacher for the management of a pulmonary nodule identified on CT scan. 3. Calculus of kidney N20.0 An ultrasound of the kidneys is planned to assess the size of the kidney stone, and the patient is advised to increase water intake with lemon to aid in stone passage. 4. Pain in unspecified joint M25.50 The patient is referred to rheumatology for further evaluation of joint pain and potential osteoarthritis. Orders: Orders TDaP Immunization Today Z23 - Encounter for immunization US renal BI Today N20.0 - Calculus of kidney Complete Blood Count Auto Diff Today M25.50 - Pain in unspecified joint C Reactive Protein Today M25.50 - Pain in unspecified joint KERRIE Reflex Titer and Pattern Today M25.50 - Pain in unspecified joint Lipid Panel Today E78.5 - Hyperlipidemia, unspecified Vitamin D 25-OH Total Today E55.9 - Vitamin D deficiency, unspecified Comprehensive [place]. Panel Fast Today E78.00 - Pure hypercholesterolemia, unspecified Pneumococcal 20 Immunization Today Z23 - Encounter for immunization Rheumatoid Factor Today M25.50 - Pain in unspecified joint Erythrocyte Sedimentation Rate Today M25.50 - Pain in unspecified joint Anti DNA DS Antibody Today M25.50 - Pain in unspecified joint Cyclic Citrullinated Peptide Today M25.50 - Pain in unspecified joint Referrals Rheumatology Referral M25.50 - Pain in unspecified joint Medications: New pyridoxine (vitamin B6) 50 mg PO DAILY 90 tabs 1RF 90 days N20.0 - Calculus of kidney
--- OUTSIDE RECORDS SUMMARY | 2025-02-28 08:20 | XMS_ITS | Clinical Summary ---
Author Organization [facility] Address [address] [place] [address] Phone Care Team Providers Care Cyber Incident Handler Name Role Phone Divine Yeung MD Primary Care Provider Surgical History Surgery Date Site/Laterality Comments OTHER SURGICAL HISTORY PROCEDURE: DENIES PREVIOUS SURGERY ESOPHAGOGASTRODUODENOSCOPY 04/29/16 PROCEDURE: [place] ESOPHAGOGASTRODUODENOSCOPY TRANSORAL DIAGNOSTIC; COMMENT: normal COLONOSCOPY 04/29/16 PROCEDURE: HISTORICAL COLONOSCOPY; COMMENT: hemorrhoids; repeat in 10 yrs Medical History Medical History Date Comments COPD (chronic obstructive pu lmonary disease) ([facility] V24, [facility] V28) 12/11/2015 DX:COPD (chronic o bstructive pulmonary disease) ([facility]) Hyperlipidemia 12/11/2015 DX:Hyperlipidemi a GERD (gastroesophageal [...] Health Maintenance Due Date Last Done Comments Colorectal Cancer Screening: Colonoscopy 1974 DTaP,Tdap,and Td Vaccines (1 - Tdap) 1993 Hepatitis B Vaccines (1 of 3 - 19+ 3-dose series) 1993 Pneumococcal Vaccine: 50+ Years (2 of 2 - PPSV23, PCV20, or PCV21) 06/04/2016 04/09/2016 Cholesterol Screening (Lipid Panel) 03/22/2024 HIV Screening 03/22/2024 Hepatitis C Screening 03/22/2024 Social Influencers of Health Screening 03/22/2024 Depression Screening 05/31/2024 Zoster Vaccines (1 of 2) 2024 COVID-19 Vaccine (3 - 2024- season) 2025 06/07/2021, 09/08/2020 Influenza Vaccine (#1) 2025 4, 03/05/2022, 03/01/2021, Additional history exists RSV Immunization Adult Patients (1 - 1-dose 75+ series) 2049 HIB Vaccines Aged Out No longer eligi [...] age to complete this topic Care Teams Cyber Incident Handler Relationship Specialty Start Date End Date Divine Yeung MD [address] [place] [address] PCP - General Internal Medicine 04/09/16
--- OUTSIDE RECORDS SUMMARY | 2025-02-28 08:20 | XMS_ITS | Clinical Summary ---
Author Organization [facility] Address [address] [place] [address] Care Team Providers Care Cement Contractor Name Role Phone Unavailable Primary Care Provider Unavailabl e Source Comments PLEASE NOTE, if this patient is a minor, it may be UNLAWFUL to discuss sensitive information that is contained in these records (such as FAMILY PLANNING, MENTAL HEALTH or SUBSTANCE ABUSE) with the minor patient's parent or other person without the patient's specific authorization.[facility] Medications acetaminophen (TYLENOL) 500 mg capsuleIndicati ons:Tooth pain Take 1 Capsule by mouth every 6 (six) hours as needed for pain 30 Capsule 08/22/2020 Active Social History Tobacco Use Types Packs/Day Years Used Date Smoking Tobacco: Never Assessed Social Connections Answer Date Recorded Social Connections and Isolation 0 08/22/2020 Financial Resource Strain Answer Date R ecorded Financial Resource Strain 0 2020 Stress Answer Date Recorded Stress 0 08/22/2020 Physical Activity Answer Date Recorded Physical Activity 0 08/22/2020 Food Insecurity Answer Date Recorded Food 0 08/22/2020 Transportation Needs Answer Date Record ed Transportation 0 08/22/2020 Housing Stability Answer Date Recorded Housing 0 08/22/2020 Safety and Environment Answer Date David rded Safety 0 08/22/2020 Utilities Answer Date Recorded Utilities 0 08/22/2020 Employment Answer Date Recorded Employment 0 08/22/2020 Sex and Gender Information Value Date Recorded Sex Assigned at Not on file Legal Sex Male 11:49 AM PDT Gender Identity Not on file Sexual Orientation Not on file Plan of Treatment Not on file Insurance [employer]
== END 2025-02-28 08:54 | disposition home or self-care (01) ==
LOC: HO.HMCH 08:07
PROVIDERS: PCP Internal Medicine; Visit Provider Internal Medicine
DX: J44.9 Chronic obstructive pulmonary disease, unspecified (principal); R91.8 Other nonspecific abnormal finding of lung field; N20.0 Calculus of kidney; M25.50 Pain in unspecified joint; E78.00 Pure hypercholesterolemia, unspecified; Z23 Encounter for immunization

== ENCOUNTER → 2025-02-28 08:07 | Outpatient (BNVA) | payer OTHER, SELFPAY | PROVIDERS: PCP Internal Medicine; Visit Provider Internal Medicine | DX: N20.0 Calculus of kidney (principal); J44.89 Other specified chronic obstructive pulmonary disease; E78.00 Pure hypercholesterolemia, unspecified; M25.50 Pain in unspecified joint; R91.8 Other nonspecific abnormal finding of lung field; Z23 Encounter for immunization; Z79.899 Other long term (current) drug therapy | CPT/HCPCS: 90471; 90472; 90677; 90715; 96127; 99212 ==

== ENCOUNTER 2025-03-06 06:00 | Outpatient (REF) | payer OTHER, SELFPAY ==
--- OUTSIDE RECORDS SUMMARY | 2025-03-06 06:03 | XMS_ITS | Clinical Summary ---
Author Organization [facility] Address [address] [place] [address] Phone Care Team Providers Care Ross Furnace Operator Name Role Phone Divine Yeung MD Primary Care Provider Surgical History Surgery Date Site/Laterality Comments OTHER SURGICAL HISTORY PROCEDURE: DENIES PREVIOUS SURGERY ESOPHAGOGASTRODUODENOSCOPY 04/29/16 PROCEDURE: [place] ESOPHAGOGASTRODUODENOSCOPY TRANSORAL DIAGNOSTIC; COMMENT: normal COLONOSCOPY 04/29/16 PROCEDURE: HISTORICAL COLONOSCOPY; COMMENT: hemorrhoids; repeat in 10 yrs Medical History Medical History Date Comments COPD (chronic obstructive pu lmonary disease) ([facility] V24, [facility] V28) 12/11/2015 DX:COPD (chronic o bstructive pulmonary disease) ([facility]) Hyperlipidemia 12/11/2015 DX:Hyperlipidemi a GERD (gastroesophageal reflux [...] age to complete this topic Care Teams Ross Furnace Operator Relationship Specialty Start Date End Date Divine Yeung MD [address] [place] [address] PCP - General Internal Medicine 04/09/16
--- OUTSIDE RECORDS SUMMARY | 2025-03-06 06:03 | XMS_ITS | Clinical Summary ---
Author Organization [facility] Address [address] [place] [address] Care Team Providers Care Brassiere Cup Mold Cutter Name Role Phone Unavailable Primary Care Provider [...]
[2025-03-06 07:29] LABS: Hematocrit 42.2 % (42.0-52.0); Hemoglobin 14.4 g/dl (14.0-18.0); Imm Gran Abs Auto 0.02 X10*3/uL (0.00-0.03); Imm Gran Pct Auto 0.3 % (0.0-0.4); Lymphocytes Absolute Auto 1.8 X10*3/uL (1.2-4.9); MANUAL DIFF FLAG SCAN; Mean Corpuscular HGB Conc 34.1 g/dl (31.0-36.0); Mean Corpuscular Hemoglobin 29.0 pg (27.0-33.0); Mean Corpuscular Volume 84.9 fL (80.0-98.0); NRBC Abs Auto 0.000 X10*3/uL (0.0-0.012); NRBC Pct Auto 0.0 /100WBC (0.0-0.2); Platelet Count 249 X10*3/uL (160-400); Red Blood Count 4.97 X10*6/uL (4.60-5.80); SCAN SMEAR FLAG 1; White Blood Count 6.0 X10*3/uL (4.8-10.8)
[2025-03-06 08:27] LABS: Alanine Aminotransferase 31 U/L (0-40); Albumin Level 4.1 g/dL (3.5-5.0); Alkaline Phosphatase 90 U/L (39-117); Anion Gap 12 (12-20); Aspartate Amino Transferase 40 U/L (5-37); Blood Urea Nitrogen 14 mg/dL (9-16); Calcium 9.2 mg/dL (8.4-10.2); Carbon Dioxide 30 mmol/L (22-29); Chloride 107 mmol/L (96-108); Cholesterol 163 mg/dL (<200); Estimated Glomerular Filt Rate > 60; HDL Cholesterol 47 mg/dL (>40); Potassium 3.8 mmol/L (3.3-5.1); Sodium 145 mmol/L (135-145); Total Protein 6.8 g/dL (6.5-8.0); Triglycerides 111 mg/dL (<150)
[2025-03-19 15:13] LABS: Anti Nuclear Antibody Pattern Nuclear, Speckled; Anti Nuclear Antibody Screen POSITIVE (NEGATIVE); Anti Nuclear Antibody Titer 1:40 titer
== END 2025-03-06 06:01 | disposition home or self-care (01) ==
LOC: HO.LAB 06:00
PROVIDERS: PCP Internal Medicine; Visit Provider Internal Medicine
DX: Z01.84 Encounter for antibody response examination (principal); E55.9 Vitamin D deficiency, unspecified; E78.00 Pure hypercholesterolemia, unspecified; M25.50 Pain in unspecified joint
CPT/HCPCS: 36415; 80053; 80061; 82306; 85025; 85652; 86038; 86039; 86140; 86200; 86225; 86431

== ENCOUNTER 2025-03-09 07:17 | Outpatient (AMB) | payer OTHER, SELFPAY ==
--- NOTE | 2025-03-09 07:26 | MHC.PC.OV ---
Vital Signs 03/09/25 07:27 Height 5 ft 11 in Weight 173 lb BMI 24.1 BP 128/78 Blood Pressure Location Lt brachial Position Sitting Pulse 64 Pulse Source Pulse Oximeter Pulse Oximetry (%) 98 Oxygen Delivery Method Room Air Intake Visit Reasons: Annual Exam Liquid Compounder Required: No Accompanied by: Self / Same As Patient Allergies No Known Allergies Allergy (Verified 03/09/25 07:36) Medication List - Last Reconciled 03/09/25 by Kerrie Escobar MD atorvastatin 10 mg PO BEDTIME 90 days budesonide-formoterol 160-4.5 mcg/actuation (Symbicort) 2 puffs inhalation BID 30 days ipratropium-albuterol 20-100 mcg/actuation 1 puff inhalation Q6H 30 days pyridoxine (vitamin B6) 50 mg PO DAILY 90 days Tobacco use date assessed: 02/28/25 Dental Screening Dental Screen Date: 02/28/25 HPI HPI Comments History of Present Illness Details The patient is a 49-year-old male presenting for his annual physical examination and preventative care. He has a history of asthma-COPD overlap syndrome, managed with Symbicort twice daily, and is under pulmonology care. A recent chest CT scan was performed. The patient is on atorvastatin 10 mg for hyperlipidemia, which is well-controlled without adverse effects. He has a history of nephrolithiasis with a small left kidney stone, managed with daily vitamin B6, and a renal ultrasound is planned for April. The patient had a colonoscopy in 2016, with the next one due in 2026. He has no known drug allergies. Socially, he quit smoking and drinks alcohol occasionally, about once a month, and engages in morning walks for exercise. He denies chest pain, dyspnea, fever, or cough, and his blood pressure is stable. One liver enzyme is slightly elevated, possibly due to atorvastatin, but it is not significant. [facility] Medical History (Updated 02/28/25 @ 08:44 by Kerrie Escobar MD) Pure hypercholesterolemia Emphysema lung Surgical History H/O colonoscopy No pertinent past surgical history Family History Father No problems noted. Mother Breast cancer Social History Housing: House Alcohol intake: current Alcohol intake frequency: holidays/special occasions only Alcohol type: beer and wine Patient Tobacco Use Status: Former Tobacco user Tobacco use type: Cigarette Cigarette Packs Per Day: 1 Years Smoked: 20 years e-Cigarette/Vaping Use: Never Used Second Hand Smoke Exposure: Yes service: No Current occupational status: employed Current occupational exposures/hazards: No Cognitive needs: No Hearing needs: No Vision needs: No Questionnaire Thrive Questionnaire Date Thrive assessed: 02/26/25 I am a: Patient What is your living situation today?: I have a steady place to live Within the past 12 months, did the food you bought not last and you didn't have the money to get more?: Never true Within the past 12 months, did you worry whether your food would run out before you got money to buy more?: Never true Do you have trouble paying for medicines?: No Do you have trouble getting transportation to medical appointments?: No Do you have trouble paying your heating and electricity bill?: No Do you have trouble taking care of your child, family member or friend?: No Do you have trouble with day-to-day activities such as bathing, preparing meals, shopping, managing finances, etc.?: No Are you currently unemployed and looking for a job?: No Are you interested in more education?: No Please select the resources that you would like help with: None Currently or been in a relationship where the following occur: I choose not to answer THRIVE Score: 0 ARY-7 AMB Questionnaire ARY-7 Date ARY - 7 assessed: 02/28/25 Source: Developed by Drs. Adrián Seth, Yana Cerda, Rosalino Amezcua and colleagues, with an educational gretel from [employer]. Review of Systems Const All systems reviewed & are unremarkable except as noted in HPI and below Card Denies chest pain at rest, Denies chest pain with activity, Denies edema, Denies irregular heart rhythm, Denies claudication, Denies dyspnea, Denies dyspnea on exertion, Denies orthopnea, Denies paroxysmal nocturnal dyspnea and Denies slow heart rate Resp Denies cough, Denies dyspnea and Denies dyspnea on exertion Denies urinary hesitancy, Denies urinary incontinence and Denies urinary urgency Musc Denies atrophy, Denies deformity and Denies limited range of motion Physical exam (Primary Care) Vital Signs: Last Vital Signs Pulse 64 03/09/25 07:27 BP 128/78 03/09/25 07:27 Pulse Ox 98 03/09/25 07:27 Oxygen Delivery Method Room Air 03/09/25 07:27 BMI result Body Mass Index 24.1 Tobacco/Smoking Status: Tobacco use Status Tobacco use date assessed 02/28/25 03/09/25 07:30 Patient Tobacco Use Status Former Tobacco user 03/09/25 07:30 Tobacco use type Cigarette 03/09/25 07:30 e-Cigarette/Vaping Use Never Used 03/09/25 07:30 Thrive Assessment: Date of Thrive Assessment Date Thrive assessed 02/26/25 03/09/25 07:30 Currently or been in a relationship where the following occur: I choose not to answer [facility] Head: Yes normal to inspection, Yes normocephalic and Yes atraumatic Ears: external ears normal Eyes General: appearance normal, both eyes and all related structures Eyelids: Yes eyelids normal Conjunctivae: conjunctivae normal Neck Neck: Yes normal visual inspection and Yes supple Resp Effort & Inspection: normal respiratory effort Auscultation: clear to auscultation bilaterally Cardio Jugular venous distension: no JVD Rate: regular rate Rhythm: regular rhythm Heart sounds: S1 normal heart sound present and S2 normal heart sound present GI Inspection: Yes normal to inspection Palpation (GI): Soft to palpation and nontender Auscultation: normal bowel sounds Skin General skin exam: no rashes or lesions noted Neuro General: no focal motor deficits Extrem General: Yes full ROM Psych Appearance: grossly normal Office Procedures Flu Questionnaire Does the patient have a severe egg allergy?: No Does the patient have severe life threatening allergies?: No Does the patient have a fever or illness today?: No Has the patient ever had Guillain-Buchanan Syndrome?: No Has the patient ever had any past reaction to a flu shot?: No Immunizations Fluarix [id number] (PF) 45 mcg (15 mcg x 3)/0.5 mL IM syringe Performing Provider: Kerrie Escobar MD [facility] [place] [facility] Administered by: Shannon Lozano CMA on 03/09/25 07:31 Dose Route Admin Location Dispensed Lot Number Expiration Date NDC Fitness Supervisor 0.5 mL IM Right Deltoid 0.5 mL [id number] 11/27/25 [id number] Closely VIS Given Date VIS Provided VIS Publication Date 03/09/25 Single Vaccine 24 Eligibility Eligibility Date Funding Source Not [facility] Eligible 03/09/25 Private Coding Level of Care Code Est Pt Prev Care 40-64y(19115) Diagnoses Physical exam Z00.00 Asthma-COPD overlap syndrome J44.9 Time Spent (min) 30 Assessment & Plan Assessment & Plan (1) Physical exam: Code(s): Z00.00 - Encounter for general adult medical examination without abnormal findings Category: Medical (2) Asthma-COPD overlap syndrome: Code(s): J44.9 - Chronic obstructive pulmonary disease, unspecified Category: Medical Plan Plan Patient was informed and verbally consented to the use of an ambient scribe for clinic note documentation during this visit. 1. Encounter for general adult medical examination without abnormal findings Z00.00 Repeat in a year. Repeat colonoscopy in 2026. 2.Other specified chronic obstructive pulmonary disease J44.89 HCC 111 The patient is managed with Symbicort twice daily and is under the care of a prosthetic dentist. A recent chest CT scan was performed to monitor the condition. Orders: Orders Influenza [id number] Immunization Today Z23 - Encounter for immunization
[2025-03-09 07:27] VITALS: BP 128/78; PULSE 64; O2SAT 98; BMI 24.1
== END 2025-03-09 07:45 | disposition home or self-care (01) ==
LOC: HO.HMCH 07:18
PROVIDERS: PCP Internal Medicine; Visit Provider Internal Medicine
DX: Z00.00 Encounter for general adult medical examination without abnormal findings (principal); J44.9 Chronic obstructive pulmonary disease, unspecified; Z23 Encounter for immunization

== ENCOUNTER → 2025-03-09 07:17 | Outpatient (BNVA) | payer OTHER, SELFPAY | PROVIDERS: PCP Internal Medicine; Visit Provider Internal Medicine | DX: Z00.00 Encounter for general adult medical examination without abnormal findings (principal); J44.89 Other specified chronic obstructive pulmonary disease; E78.5 Hyperlipidemia, unspecified; N20.0 Calculus of kidney; Z23 Encounter for immunization; Z87.891 Personal history of nicotine dependence; Z79.899 Other long term (current) drug therapy | CPT/HCPCS: 90471; 90656; 99396 ==

== ENCOUNTER 2025-03-29 09:17 | Outpatient (AMB) | payer OTHER, SELFPAY ==
[2025-03-29 09:20] VITALS: BP 126/67; PULSE 90; O2SAT 98; BMI 23.8
--- NOTE | 2025-03-29 09:20 | MHC.OFFVIS ---
Vital Signs 03/29/25 09:20 Height 5 ft 11 in Weight 171 lb BMI 23.8 BP 126/67 Blood Pressure Location Lt brachial Position Sitting Pulse 90 Pulse Source Pulse Oximeter Pulse Oximetry (%) 98 Oxygen Delivery Method Room Air Intake Visit Reasons: Asthma Agri Business Agent Required: Yes Agri Business Agent Name: Leonela Bedoya Sabina Information Interpreted: non-clinical & clinical Allergies No Known Allergies Allergy (Verified 03/29/25 09:24) HPI HPI Asthma: Details: 49-year-old gentleman, former 20 pack-year smoker, quit 2015, with underlying history of emphysema previously seen at [facility], now followed for asthma/COPD overlap syndrome. He continues on Symbicort, duo nebs, and albuterol MDI with good control of his symptoms. He had his PET scan that demonstrate resolution of previously noted right upper lobe spiculated nodule, though it was redemonstrated on a six-month follow-up CT chest as a stable nodule. [facility] Medical History Pure hypercholesterolemia Emphysema lung Surgical History H/O colonoscopy No pertinent past surgical history Family History Father No problems noted. Mother Breast cancer Social History Housing: House Alcohol intake: current Alcohol intake frequency: holidays/special occasions only Alcohol type: beer and wine Patient Tobacco Use Status: Former Tobacco user Tobacco use type: Cigarette Cigarette Packs Per Day: 1 Years Smoked: 20 years e-Cigarette/Vaping Use: Never Used Second Hand Smoke Exposure: Yes service: No Current occupational status: employed Current occupational exposures/hazards: No Cognitive needs: No Hearing needs: No Vision needs: No Review of Systems Const Denies daytime sleepiness, Denies excessive sweating, Denies fatigue, Denies fever(s), Denies lethargy, Denies malaise, Denies night sweats, Denies snoring and Denies weight loss Eyes Denies blurry vision and Denies itchy eyes ENT Denies nasal congestion, Denies post nasal drip, Denies sinus pain, Denies sinus pressure and Denies other ( Thrush) Card Denies chest pain, Denies pedal edema, Denies dyspnea, Denies orthopnea and Denies paroxysmal nocturnal dyspnea Resp Denies cough, Denies hemoptysis, Denies excessive phlegm production, Denies dyspnea, Denies snoring and Denies wheezing GI Denies abdominal pain and Denies heartburn Musc Denies myalgias, Denies arthralgias and Denies joint swelling Skin/Breast Denies rash Neuro Denies memory loss and Denies seizure-like activity Psych Denies abnormal sleep pattern, Denies anxiety and Denies memory loss Endo Denies excessive sweating, Denies fatigue and Denies heat intolerance Maikol/Lymph Denies easy bruising Aller/Immun Denies itchy eyes, Denies seasonal rhinorrhea and Denies wheezing Physical Exam Vital Signs: Last Vital Signs Pulse 90 03/29/25 09:20 BP 126/67 03/29/25 09:20 Pulse Ox 98 03/29/25 09:20 Oxygen Delivery Method Room Air 03/29/25 09:20 BMI result Body Mass Index 23.8 Const General: no acute distress and alert Nutritional Appearance: not obese Orientation/consciousness: Other orientation findings ( oriented) HEENT Head: Yes atraumatic Eyes General: appearance normal, both eyes and all related structures Sclerae: sclerae normal EOM: EOMs intact bilaterally Neck Neck: Yes supple Lymphatic: no lymphadenopathy noted Resp Effort & Inspection: normal respiratory effort and no use of accessory muscles Auscultation: clear to auscultation bilaterally Cardio Rate: regular rate Rhythm: regular rhythm Heart sounds: no gallops, no murmurs and no rubs Skin General skin exam: other ( warm) Extrem General: No clubbing, No cyanosis and No edema Assessment & Plan Assessment & Plan (1) Asthma-COPD overlap syndrome: Code(s): J44.9 - Chronic obstructive pulmonary disease, unspecified Category: Medical Plan: Well controlled on current regimen of Symbicort and Combivent. Continue current regimen. (2) Pulmonary nodules: Code(s): R91.8 - Other nonspecific abnormal finding of lung field Category: Medical Plan: Six-month follow-up CT chest results reviewed, stable pulmonary nodules. Will repeat CT chest in 12 months. Coding Level of Care Code Est Pt Level 4 (55976) Diagnoses Asthma-COPD overlap syndrome J44.9 Pulmonary nodules R91.8
== END 2025-03-29 10:07 | disposition home or self-care (01) ==
LOC: HO.HPS 09:18
PROVIDERS: PCP Internal Medicine; Visit Provider Internal Medicine Pulmonary Disease
DX: J44.9 Chronic obstructive pulmonary disease, unspecified (principal); R91.8 Other nonspecific abnormal finding of lung field
CPT/HCPCS: 99214

== ENCOUNTER → 2025-03-29 09:17 | Outpatient (BNVA) | payer OTHER, SELFPAY | PROVIDERS: PCP Internal Medicine; Visit Provider Internal Medicine Pulmonary Disease | DX: R91.8 Other nonspecific abnormal finding of lung field (principal); J44.9 Chronic obstructive pulmonary disease, unspecified | CPT/HCPCS: 99212 ==

== ENCOUNTER 2025-04-05 08:30 | Emergency (ER) | payer OTHER, SELFPAY ==
--- NOTE | ~2025-04-05 | XR_ITS ---
EXAMINATION: XR SHOULDER 2 OR MORE VIEWS LEFT HISTORY: pain COMPARISON: There are no prior studies available for comparison. FINDINGS: Three views of the left shoulder are submitted. Osseous mineralization is normal. There is no fracture or dislocation. The glenohumeral joint is maintained. There is mild narrowing of the AC joint. There is a calcified granuloma in the left upper lobe. XR/XR shoulder LT min 2V IMPRESSION: Mild narrowing of the AC joint. Electronically signed by: Adrián Kay MD 04/05/2025 08:59 AM [facility] JO
[2025-04-05 08:33] VITALS: BP 141/89; PULSE 117; RESP 18; TEMP 36.9; O2SAT 97; BMI 25.5
--- NOTE | 2025-04-05 09:50 | ED.EXTPRO ---
HPI - Extremity Problem General Chief complaint: Extremity Injury, Upper Stated complaint: L shoulder pain Time Seen by Provider: 04/05/25 09:01 Source: patient, RN notes reviewed, old records reviewed and director medical economics Mode of arrival: ambulatory Limitations: language barrier History of Present Illness ED Provider: [place] HPI Narrative: Patient is a 49-year-old right-hand dominant male presenting to the emergency department with complaint of atraumatic left shoulder pain for the past 2 days. Reports pain was present when he woke 2 days ago. 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 Reports pain is to superior/posterior aspect of glenohumeral joint. Denies any numbness or tinglng. Denies any chest pain, palpitations, dyspnea, dizziness or lightheadedness. MD Complaint: joint pain Related Data Previous Rx's ?Medication ?Instructions ?Recorded ipratropium 20 mcg-albuterol 100 1 puff inhalation Q6H 30 days #4 09/07/22 mcg/actuation mist for inhalation grams budesonide-formoterol HFA 160 2 puff inhalation BID 30 days #11 01/08/25 mcg-4.5 mcg/actuation aerosol grams inhaler (Symbicort) atorvastatin 10 mg tablet 10 mg PO BEDTIME 90 days #90 tabs 02/04/25 pyridoxine (vitamin B6) 50 mg 50 mg PO DAILY 90 days #90 tabs 02/28/25 tablet naproxen 500 mg tablet 500 mg PO BID #14 tabs 04/05/25 prednisone 10 mg tablet See Rx Instructions .Route 04/05/25 .COMPLEX #15 tabs Allergies Allergy/AdvReac Type Severity Reaction Status Date / Time No Known Allergies Allergy Verified 04/05/25 08:37 Review of Systems Review of Systems: as per hpi Yes all other systems are reviewed and are negative Constitutional: Constitutional: Reports as per HPI PMFSH Past Medical History Medical History Pure hypercholesterolemia Emphysema lung Surgical History H/O colonoscopy No pertinent past surgical history Family History Family History Father No problems noted. Mother Breast cancer Social History Social History Housing: House Alcohol intake: current Alcohol intake frequency: holidays/special occasions only Alcohol type: beer and wine Patient Tobacco Use Status: Former Tobacco user Tobacco use type: Cigarette Cigarette Packs Per Day: 1 Years Smoked: 20 years e-Cigarette/Vaping Use: Never Used Second Hand Smoke Exposure: Yes Advance Directives: No Advance Directives Information Provided: Yes Do you have a plan to hurt others: No Plan service: No Current occupational status: employed Current occupational exposures/hazards: No Cognitive needs: No Hearing needs: No Vision needs: No Physical Exam Vital Signs: Vital Signs: Last Vital Signs Temp 98.4 F 04/05/25 08:33 Pulse 117 H 04/05/25 08:33 Resp 18 04/05/25 08:33 BP 141/89 H 04/05/25 08:33 Pulse Ox 97 04/05/25 08:33 O2 Del Method Room Air 04/05/25 08:33 BMI result Body Mass Index 25.5 Vital signs have been reviewed and appear to be correct. Blood pressure normal. Heart rate mildly tachycardic. Respiratory rate normal. Temperature normal. Oxygen saturation normal. Const: General: cooperative, healthy appearing and no acute distress Orientation/consciousness: oriented to person, oriented to place, oriented to time and patient oriented x3 Limitations: no limitations HEENT: Head: Yes normocephalic and Yes atraumatic Ears: external ears normal General nose exam: Normal external nose present Face and sinus: Yes face symmetric Mouth: oropharynx normal and moist mucous membranes Throat: Yes uvula midline Eyes: Pupils: Equal, round and reactive pupils present Neck: Neck: Yes normal visual inspection and Yes supple Resp: Effort & Inspection: normal respiratory effort and able to speak in complete sentences Auscultation: clear to auscultation bilaterally Cardio: Rate: regular rate Rhythm: regular rhythm Heart sounds: S1 normal heart sound present and S2 normal heart sound present GI: Palpation (GI): Soft to palpation and nontender Auscultation: normoactive bowel sounds : General: Yes no CVA tenderness Back/Spine/Pelvis: Back: no CVA tenderness Skin: General skin exam: elasticity normal and turgor normal Neuro: General: oriented to person, oriented to place, oriented to time, patient oriented x3, moves all extremities, no focal motor deficits and CN's II-XI intact bilaterally Cranial nerves: Yes Equal, round and reactive pupils present Cognition (Neuro): normal cognition Extrem: General: Yes full ROM, Yes no pedal edema and Yes no calf tenderness Left upper extremity: shoulder/upper arm Details: inspection abnormal and tenderness Location: of the proximal humerus; no swelling, ROM limited (limited in all directions due to pain), no ecchymosis and no unsual warmth Psych: Mental Status: mental status grossly normal Affect: normal affect Thought process: Normal thought process present Medical Decision Making Medical Decision Making [facility] Narrative: Patient is a 49-year-old right-hand dominant male presenting to the emergency department with complaint of atraumatic left shoulder pain for the past 2 days. On exam patient is awake, A+Ox3, VS WNL, afebrile, normal neurological exam without focal deficits, physical exam findings as above. Given reported symptoms and physical exam findings, initial differential includes but is not limited to left shoulder strain, sprain, rotator cuff strain. Unlikely fracture or dislocation. X-ray left shoulder notable for no acute fracture or dislocation. My interpretation is in agreement with the radiologist's interpretation. Results discussed with patient and all questions answered. Will treat with IM Toradol and prednisone here and discharged home on course of naproxen and prednisone taper. Will also refer to orthopedics for further evaluation and management. Return precautions discussed. Patient verbalized understanding of and agreement with plan. In-person parole hearing officer was utilized for all interactions, assessments, and discussions. Differential Diagnosis Differential Diagnoses: The differential diagnosis associated with the presentation includes as per mdm Admission/Observation Consideration of admission/observation: Escalation of care including admission/observation considered Patient would have been admitted to the hospital and transferred to appropriate facility had their clinical presentation warranted hospital admission. Independent Interpretation I performed an independent interpretation of an: Plain X-Ray Interpretation: No acute fracture or dislocation left shoulder x-ray Radiology Impression Discussion of test interpretation with radiology: I have reviewed the radiologist's reading. Radiologist Impression: XR/XR shoulder LT min 2V IMPRESSION: Mild narrowing of the AC joint. External Record Review External record reviewed: Inpatient record, Office record and Outpatient record Prescription Management I considered prescription management with: Pain Medication and Other Discharge Plan Discharge Clinical Impression: Left shoulder strain Patient Disposition: Home, Self-Care Instructions: Muscle Strain (DC), Rotator Cuff Injury (ED), Rotator Cuff Injury Exercises (DC) Additional Instructions: You were evaluated in the emergency department today for left shoulder pain. Your x-ray did not show evidence of any fracture or dislocation. Your physical exam findings are consistent with a rotator cuff strain. You are being prescribed a tapering course of prednisone which is a steroid to decrease inflammation. You are also being prescribed naproxen which is an anti-inflammatory medication. You are being referred to orthopedics for further evaluation and management of your symptoms. Perform the gentle [id number] exercises several times a day as described and according to the attached discharge instructions. Return to the emergency department if you develop new weakness, numbness, tingling, worsening pain or any other new or concerning symptoms. Prescriptions: New prednisone 10 mg tablet See Rx Instructions .ROUTE .COMPLEX Qty: 15 0RF Rx Instructions: 50mg (5 tabs) x1 day, then 40 mg (4 tabs) x1 day, then 30 mg (3 tabs) x1 day, then 20 mg (2 tabs) times 1 day, then 10 mg (1 tab) x1 day naproxen 500 mg tablet 500 mg PO BID Qty: 14 0RF No Action ipratropium-albuterol 20-100 mcg/actuation mist 1 puff inhalation Q6H 30 Days Qty: 4 2RF budesonide-formoterol [Symbicort] 160-4.5 mcg/actuation HFA aerosol inhaler 2 puff inhalation BID 30 Days Qty: 11 6RF atorvastatin 10 mg tablet 10 mg PO BEDTIME 90 Days Qty: 90 0RF pyridoxine (vitamin B6) 50 mg tablet 50 mg PO DAILY 90 Days Qty: 90 1RF Referrals: [facility] [Provider Group] - 1 week Clinical Impression: Left shoulder strain Stand Alone Forms: Work/School Release Print Language: Greenlandic
== END 2025-04-05 10:42 | disposition home or self-care (01) ==
PROVIDERS: Emergency Provider Emergency Medicine; PCP Internal Medicine
DX: S46.912A Strain of unspecified muscle, fascia and tendon at shoulder and upper arm level, left arm, initial encounter (principal); X50.3XXA Overexertion from repetitive movements, initial encounter; Y93.89 Activity, other specified; Y92.89 Other specified places as the place of occurrence of the external cause; Y99.0 Civilian activity done for income or pay; M25.512 Pain in left shoulder
CPT/HCPCS: 73030; 96372; 99283; 99284; J1885

== ENCOUNTER → 2025-04-05 08:54 | Outpatient (BNV) | payer OTHER, SELFPAY | PROVIDERS: Emergency Provider Emergency Medicine; PCP Internal Medicine; Visit Provider Radiology Diagnostic Radiology | DX: M19.012 Primary osteoarthritis, left shoulder (principal) | CPT/HCPCS: 73030 ==

== ENCOUNTER 2025-05-04 10:18 | Outpatient (REF) | payer OTHER, SELFPAY ==
--- NOTE | ~2025-05-04 | US_ITS ---
CLINICAL HISTORY: N20.0 - Calculus of kidney US of kidneys Comparison: None provided Findings: Right kidney is normal in size, echogenicity and morphology, 11.4 cm in length. No calculus, mass or hydronephrosis. No abnormal vascular flow. Left kidney is normal in size, echogenicity and morphology, 11.7 cm in length. No calculus. Mild hydronephrosis. Minimally complex cyst with thin septation in the upper pole, 1.7 x 2.0 x 1.6 cm, no convincing intralesional vascular flow. Impression: 1. Mild left hydronephrosis, uncertain etiology. 2. Left renal minimally complex cyst. This document has been electronically signed by: Britney Dasilva MD on 05/04/2025 15:46:42
== END 2025-05-04 10:19 | disposition home or self-care (01) ==
LOC: HO.US 10:18
PROVIDERS: Visit Provider Internal Medicine
DX: N20.0 Calculus of kidney (principal)
CPT/HCPCS: 76775

== ENCOUNTER → 2025-05-04 10:21 | Outpatient (BNV) | payer OTHER, SELFPAY | PROVIDERS: Visit Provider Radiology Diagnostic Radiology | DX: N13.0 Hydronephrosis with ureteropelvic junction obstruction (principal); N28.1 Cyst of kidney, acquired | CPT/HCPCS: 76775 ==